=== PATIENT | female | born 1960 | race Caucasian/White ===

== ENCOUNTER 2016-05-18 13:02 | Emergency (ER) | payer OTHER ==
[~2016-05-18] VITALS: Ht 157.5 cm; Wt 48.2 kg
[~2016-05-18 13:02] MED LIST: DIAZ5TAB3 PO; FLUO20CA35 PO; IBUP-1428 PO
[2016-05-18 13:07] VITALS: TEMP 36.3; Ht 157.5 cm; Wt 48.2 kg
[2016-05-18] MEDS ORDERED: GABA-113 PO (14:26)
[2016-05-18] MEDS ORDERED: CLON1TAB3 PO (14:26)
[2016-05-18] MEDS ORDERED: BUSP15TA70 PO (14:26)
[2016-05-18 14:41] LABS: ALT/SGPT 54 U/L (12-78); AST/SGOT 22 U/L (15-37); BLOOD UREA NITROGEN 10 mg/dl (7-18); CALCIUM 9.3 mg/dl (8.5-10.1); CARBON DIOXIDE 28 mmol/L (21-32); CHLORIDE 99 mmol/L (98-107); CREATININE 0.99 mg/dl (0.60-1.20); GLUCOSE 76 mg/dl (70-99); POTASSIUM 4.3 mmol/L (3.5-5.1); SODIUM 135 mmol/L (136-145)
[2016-05-18 14:43] LABS: ALKALINE PHOSPHATASE 92 U/L (45-117)
[2016-05-18 15:03] LABS: URINE APPEARANCE CLEAR (CLEAR); URINE BILIRUBIN NEG (NEG); URINE COLOR YELLOW; URINE EPITHELIAL CELL AUTO 0-5 /lpf (0-5); URINE NITRITE NEG (NEG); URINE SPECIFIC GRAVITY 1.007 (1.000-1.030); UROBILINOGEN NEG (NEG); ZZUR CULT IF INDIC CLEAN CATCH NO
[2016-05-18 15:04] LABS: MANUAL MICROSCOPIC REQUIRED? NO; REVIEW REQ? NO
[2016-05-18 15:15] LABS: BASO % 0.4 %; BASO ABS # 0.02 K/uL (0-0.2); COMPLETE YES; HEMATOCRIT 34.4 % (37-47); IG% 0.2 %; LYMPH % 31.7 %; LYMPH ABS # 1.57 K/uL (1.2-3.4); MEAN CELL VOLUME 89.8 fL (80-100); MEAN CORPUSCULAR HEMOGLOBIN 30.8 pg (25-34); MEAN CORPUSCULAR HGB CONC 34.3 g/dl (32-36); MONO % 10.3 %; NEUT % 55.4 %; PLATELET COUNT 287 K/uL (130-400); RED BLOOD COUNT 3.83 M/uL (4.2-5.4); WHITE BLOOD COUNT 4.95 K/uL (4.8-10.8)
--- NOTE | 2016-05-18 16:02 | EMERGENCY ROOM VISIT NOTE ---
History Report prepared by Ruben: Gris Tavares Under the Supervision of: Dr. Garcia Prajapati D.O. First contact with patient: 14:03 Chief Complaint: OTHER COMPLAINT Stated Complaint: NUMB, PINS AND NEEDLES, PAIN W/D FROM EFFEXOR History of Present Illness The patient is a 56 year old female who presents to the Emergency Room with complaints of intermittent generalized pain that began over one month ago. She currently rates her discomfort as a 7/10 in severity. The patient states that she is currently going through withdrawal from Effexor. She states that she has been off the medication for three months, and has been started on Prozac and Valium for her severe depression and anxiety. The patient states that she was being taken off the Effexor because she almost three times. She states that she had an DC while on Effexor and additionally had a decrease in her blood pressure from 60 to 40 mmHg. The patient states that since she has been experiencing intermittent generalized pain, pins and needles throughout her body and tremors. She states that these symptoms have been preceded by her anxiety or her becoming upset. The patient denies any suicidal or homicidal ideation. She denies any alcohol use. Pt denies headache, fevers , chest pain, shortness of breath, nausea, vomiting, diarrhea, pain with urination, and melena. Source of History: patient Onset: one month ago Position: other (global) Symptom Intensity: 7/10 Quality: other (generalized pain) Timing: intermittent Note: Associated Symptoms: Blurry vision, pins and needles throughout body, tremors Review of Systems See HPI for pertinent positives & negatives. A total of 10 systems reviewed and were otherwise negative. Past Medical & Surgical Medical Problems: (1) Anxiety (2) Chest pain (3) Depression Family History Cancer Diabetes mellitus Gallbladder disease Heart disease Hypertension Kidney disease Kidney stones Social History Smoking Status: Former Smoker Alcohol Use: occasionally Housing Status: lives alone Occupation Status: employed Current/Historical Medications Scheduled Buspirone Hcl (Buspar), 15 MG PO DAILY Diazepam (Valium), 5-10 MG PO DAILY Fluoxetine (Prozac), 60 MG PO DAILY Gabapentin (Neurontin), 60 MG PO BID Scheduled PRN Clonazepam (Klonopin), 1 MG PO PRN PRN for SEVERE ANXIETY Allergies Coded Allergies: Codeine (Verified Allergy, Unknown, "makes me sick", 05/18/16) Physical Exam Vital Signs Date Time Temp Pulse Resp B/P Pulse Ox O2 Delivery O2 Flow Rate FiO2 05/18/16 16:04 53 15 126/96 98 Room Air 05/18/16 15:04 50 16 125/81 99 Room Air 05/18/16 14:17 57 05/18/16 13:07 36.3 60 18 101/66 96 Room Air Physical Exam GENERAL: Sitting up in bed, malnourished, disheveled. EYE EXAM: normal conjunctiva, PERRL and EOM's intact OROPHARYNX: no exudate, no erythema, lips, buccal mucosa, and tongue normal and mucous membranes are moist NECK: supple, no nuchal rigidity, no adenopathy, non-tender LUNGS: Clear to auscultation. Normal chest wall mechanics HEART: no murmurs, S1 normal and S2 normal ABDOMEN: abdomen soft, non-tender, normo-active bowel sounds, no masses, no rebound or guarding. BACK: Back is symmetrical on inspection and there is no deformity, no midline tenderness, no CVA tenderness. SKIN: no rashes and no bruising UPPER EXTREMITIES: upper extremities are grossly normal. LOWER EXTREMITIES: No pitting edema. NEURO EXAM: Normal sensorium, cranial nerves II-XII grossly intact, normal speech, no gross weakness of arms, no gross weakness of legs. No drift. Finger to nose intact. Gross sensation intact. No Clonus. Rapid alternating movements of the upper extremities intact. Medical Decision & Procedures Laboratory Results 05/18/16 14:15 Red Blood Count 3.83, Mean Corpuscular Volume 89.8, Mean Corpuscular Hemoglobin 30.8, Mean Corpuscular Hemoglobin Concent 34.3, Mean Platelet Volume 9.0, Neutrophils (%) (Auto) 55.4, Lymphocytes (%) (Auto) 31.7, Monocytes (%) (Auto) 10.3, Eosinophils (%) (Auto) 2.0, Basophils (%) (Auto) 0.4, Neutrophils # (Auto ) 2.74, Lymphocytes # (Auto) 1.57, Monocytes # (Auto) 0.51, Eosinophils # (Auto ) 0.10, Basophils # (Auto) 0.02 05/18/16 14:15 Test 05/18/16 14:15 05/18/16 14:34 White Blood Count 4.95 K/uL (4.8-10.8) Red Blood Count 3.83 M/uL (4.2-5.4) Hemoglobin 11.8 g/dL (12.0-16.0) Hematocrit 34.4 % (37-47) Mean Corpuscular Volume 89.8 fL (80-100) Mean Corpuscular Hemoglobin 30.8 pg (25-34) Mean Corpuscular Hemoglobin Concent 34.3 g/dl (32-36) Platelet Count 287 K/uL (130-400) Mean Platelet Volume 9.0 fL (7.4-10.4) Neutrophils (%) (Auto) 55.4 % Lymphocytes (%) (Auto) 31.7 % Monocytes (%) (Auto) 10.3 % Eosinophils (%) (Auto) 2.0 % Basophils (%) (Auto) 0.4 % Neutrophils # (Auto) 2.74 K/uL (1.4-6.5) Lymphocytes # (Auto) 1.57 K/uL (1.2-3.4) Monocytes # (Auto) 0.51 K/uL (0.11-0.59) Eosinophils # (Auto) 0.10 K/uL (0-0.5) Basophils # (Auto) 0.02 K/uL (0-0.2) RDW Standard Deviation 43.3 fL (36.4-46.3) RDW Coefficient of Variation 13.2 % (11.5-14.5) Immature Granulocyte % (Auto) 0.2 % Immature Granulocyte # (Auto) 0.01 K/uL (0.00-0.02) Anion Gap 8.0 mmol/L (3-11) Est Creatinine Clear Calc Drug Dose 48.3 ml/min Estimated GFR () 73.8 Estimated GFR (Non- 63.7 BUN/Creatinine Ratio 10.0 (10-20) Calcium Level 9.3 mg/dl (8.5-10.1) Total Bilirubin 0.2 mg/dl (0.2-1) Direct Bilirubin < 0.1 mg/dl (0-0.2) Aspartate Amino Transf (AST/SGOT) 22 U/L (15-37) Alanine Aminotransferase (ALT/SGPT) 54 U/L (12-78) Alkaline Phosphatase 92 U/L (45-117) Total Protein 7.4 gm/dl (6.4-8.2) Albumin 4.3 gm/dl (3.4-5.0) Lipase 186 U/L (73-393) Urine Color YELLOW Urine Appearance CLEAR (CLEAR) Urine pH 7.0 (4.5-7.5) Urine Specific [place] 1.007 (1.000-1.030) Urine Protein NEG (NEG) Urine Glucose (UA) NEG (NEG) Urine Ketones NEG (NEG) Urine Occult Blood NEG (NEG) Urine Nitrite NEG (NEG) Urine Bilirubin NEG (NEG) Urine Urobilinogen NEG (NEG) Urine Leukocyte Esterase NEG (NEG) Urine WBC (Auto) 0 /hpf (0-5) Urine RBC (Auto) 0-4 /hpf (0-4) Urine Hyaline Casts (Auto) 0 /lpf (0-5) Urine Epithelial Cells (Auto) 0-5 /lpf (0-5) Urine Bacteria (Auto) NEG (NEG) Urine Test NEG (NEG) Laboratory results per my review. Medications Administered Medications (Trade) Dose Ordered Sig/Kaur Route Start Time Stop Time Status Last Admin Dose Admin Prednisone (PredniSONE TAB) 60 mg NOW STAT PO 05/18/16 15:36 05/18/16 15:37 DC 05/18/16 16:08 60 MG ED Course ED COURSE: Vital signs were reviewed and showed normal vitals The patients medical record was reviewed The above diagnostic studies were performed and reviewed. ED treatments and interventions as stated above. 1406: The patient was evaluated in room A9B. A complete history and physical examination was performed. 1536: Upon reevaluation, the patient is resting comfortably.I discussed my findings with the patient and she understands and agrees with the treatment plan. She was requesting narcotic pain medications, but I told her we do not prescribe that for withdrawal. She states that last time steroids helped her symptoms Based on the patients age, coexisting illnesses, exam and lab findings the decision to treat as an outpatient was made. The patient remained stable while under my care. The patient appeared well at the time of discharge. Ordered Prednisone 60 mg PO. Medical Decision Differential Diagnosis includes but is not limited to dehydration, stroke, anemia, hypoglycemia, hyponatremia, hypernatremia, urinary tract infection, pneumonia, bronchitis, sepsis, gastroenteritis, additional abdominal pathology, metabolic abnormalities and infections. Patient is a 56-year-old female who presents the ER for diffuse myalgias and paresthesias. Patient has no other complaints at this time. On exam she is completely neurologically intact. She's complained of his symptoms for over a month. She notes that they are paresthesias and return to diffuse body pain. This is consistent with withdrawal from Effexor however it has been going on for protracted period of time. She is on Prozac. Labs were obtained and were unremarkable. I recommended following up with her psychiatrist but she requested narcotics. I declined as she is on multiple medications which can decrease her respiratory drive. Do not believe narcotics the treatment of choice at this time. Recommended continuing Motrin or Tylenol. She is very upset with this. She requested to steroids as she notes this normally makes her feel better. I did give her small dose of prednisone 1 and she was discharged to follow-up with her psychiatrist. She denied any suicidal or homicidal ideations on 2 separate occasions. Discussed with Pt concerning signs and symptoms to watch out for. Pt was instructed to follow up with their PCP and discussed with the patient their option to return to the ED at anytime for persistent or worsening symptoms. The appropriate anticipatory guidance and out- patient management, including indications for return to the emergency department , were explained at length to the patient and understood. Impression Primary Impression: Myalgia Additional Impression: Paresthesias Scribe Attestation The scribe's documentation has been prepared under my direction and personally reviewed by me in its entirety. I confirm that the note above accurately reflects all work, treatment, procedures, and medical decision making performed by me. Departure Information Dispostion Home / Self-Care Referrals Gretta Martines M.D. (PCP) Forms HOME CARE DOCUMENTATION FORM, IMPORTANT VISIT INFORMATION, WORK / SCHOOL INSTRUCTIONS Patient Instructions ED Muscle Aching, My [facility] Additional Instructions Please follow up with your primary care doctor/psychiatrist with in the next 24 hours. Any worsening of your symptoms, please return to the ED immediately. Any weakness in your arms or legs, confusion, fevers grade and 100.4, or any other concerning signs or symptoms please return to the ER. This take Motrin or Tylenol as needed for pain. Problem Qualifiers
[2016-05-18 16:04] VITALS: BP 126/96; PULSE 53; O2SAT 98
== END 2016-05-18 16:13 | disposition home or self-care (01) ==
LOC: C.EDB 13:07 → C.EDA 16:13
DX: M79.1 Myalgia (principal); R20.2 Paresthesia of skin; F41.9 Anxiety disorder, unspecified; F32.9 Major depressive disorder, single episode, unspecified; Z87.891 Personal history of nicotine dependence; Z79.899 Other long term (current) drug therapy; Z88.5 Allergy status to narcotic agent; Z80.9 Family history of malignant neoplasm, unspecified; Z83.3 Family history of diabetes mellitus; Z83.79 Family history of other diseases of the digestive system; Z82.49 Family history of ischemic heart disease and other diseases of the circulatory system; Z84.1 Family history of disorders of kidney and ureter

== ENCOUNTER → 2016-06-05 | Outpatient (CLI) | payer OTHER ==
[~2016-06-05] MED LIST changes: +BUSP15TA70 PO; +CLON1TAB3 PO; +GABA-113 PO; -IBUP-1428 PO
[2016-06-05 13:04] LABS: TOTAL IRON BINDING CAPACITY 311 mcg/dl (250-450)
[2016-06-09 15:28] LABS: ALBUMIN 4.4 G/DL (3.8-4.8); GAMMA GLOBULIN 0.7 G/DL (0.8-1.7); TOTAL PROTEIN 6.7 G/DL (6.2-8.3)
== END | disposition home or self-care (01) ==
LOC: C.LABBFT 09:40
PROVIDERS: ATTEND Internal Medicine
DX: D64.9 Anemia, unspecified (principal); R20.2 Paresthesia of skin; R63.4 Abnormal weight loss; M79.1 Myalgia

== ENCOUNTER 2017-04-05 11:59 | Inpatient (IN) | payer OTHER ==
[~2017-04-05] VITALS: Ht 160 cm; Wt 51.4 kg
--- NOTE | 2017-04-05 12:56 | DIAGNOSTIC IMAGING REPORT ---
CHEST ONE VIEW PORTABLE CLINICAL HISTORY: Mood Disorder DEPRESSION COMPARISON STUDY: 02/12/2016 FINDINGS: The cardiac and mediastinal contours are normal. There is no evidence of focal pulmonary consolidation. There is no evidence of failure. No pleural effusions are visualized.[ IMPRESSION: No active disease in the chest. Electronically signed by: Miguel Simpson M.D. 04/05/2017 12:55 PM Dictated Date/Time: 04/05/2017 12:54 PM
[2017-04-05 12:58] LABS: BASO % 0.6 %; BASO ABS # 0.03 K/uL (0-0.2); COMPLETE YES; EOS % 1.9 %; HEMATOCRIT 36.4 % (37-47); IG% 0.2 %; LYMPH % 27.5 %; LYMPH ABS # 1.46 K/uL (1.2-3.4); MEAN CELL VOLUME 89.2 fL (80-100); MEAN CORPUSCULAR HEMOGLOBIN 29.7 pg (25-34); MEAN CORPUSCULAR HGB CONC 33.2 g/dl (32-36); MEAN PLATELET VOLUME 8.8 fL (7.4-10.4); MONO % 9.1 %; NEUT % 60.7 %; PLATELET COUNT 255 K/uL (130-400); RED BLOOD COUNT 4.08 M/uL (4.2-5.4)
[2017-04-05 12:58] LABS: URINE APPEARANCE CLOUDY (CLEAR); URINE BILIRUBIN NEG (NEG); URINE COLOR YELLOW; URINE NITRITE NEG (NEG); URINE SPECIFIC GRAVITY 1.015 (1.000-1.030); UROBILINOGEN NEG (NEG)
[2017-04-05 13:06] LABS: MANUAL MICROSCOPIC REQUIRED? NO; REVIEW REQ? NO
[2017-04-05] MEDS ORDERED: DIAZ10TA3 PO (13:15)
[2017-04-05] MEDS ORDERED: KPP/250 PO (13:15)
[2017-04-05 13:20] LABS: ALT/SGPT 54 U/L (12-78); AST/SGOT 36 U/L (15-37); BLOOD UREA NITROGEN 14 mg/dl (7-18); BUN/CREATININE RATIO 13.4 (10-20); CARBON DIOXIDE 26 mmol/L (21-32); CHLORIDE 99 mmol/L (98-107); CREATININE 1.03 mg/dl (0.60-1.20); GLUCOSE 71 mg/dl (70-99); POTASSIUM 3.6 mmol/L (3.5-5.1); SODIUM 130 mmol/L (136-145)
[2017-04-05 13:29] VITALS: O2SAT 98
[2017-04-05 13:31] LABS: ALKALINE PHOSPHATASE 66 U/L (45-117)
[2017-04-05 13:33] LABS: BENZODIAZEPINE, URINE POS (NEG); COCAINE,URINE NEG (NEG); PHENCYCLIDINE, URINE NEG (NEG)
[2017-04-05] MEDS ORDERED: NURSING VERBAL MED ORDER ONE ×2 (16:00→17:15)
[2017-04-05] MEDS ORDERED: BISMUTH SUBSALICYLATE PER ML OMNICELL CHARGE PO PRN (16:15)
[2017-04-05] MEDS ORDERED: ACETAMINOPHEN 325 MG TAB PO PRN (16:15)
[2017-04-05] MEDS ORDERED: hydrOXYzine HCL 25 MG TAB PO PRN ×2 (16:15)
[2017-04-05] MEDS ORDERED: MAGNESIUM HYDROXIDE SUSP 30 ML UDC PO PRN (16:15)
[2017-04-05] MEDS ORDERED: SODIUM CHLORIDE 0.65% NA SOLN 45 ML (OCEAN) PRN (16:15)
[2017-04-05] MEDS ORDERED: ALUMINUM/MAGNESIUM SUSP 30 ML UDC PO PRN (16:15)
--- NOTE | 2017-04-05 16:26 | EMERGENCY ROOM VISIT NOTE ---
History Report prepared by Ruben: Hector Fry Under the Supervision of: Dr. Garcia Prajapati D.O. First contact with patient: 12:15 Stated Complaint: DEPRESSION History of Present Illness The patient is a 56 year old female who presents to the Emergency Room with complaints of worsening depression this week. Patient states a family incident caused her to come in and that she is "tired of feeling hated". Patient denies any delusions or hallucinations. Patient has been eating, but denies showering for past few days. Patient has a history of PTSD, depression, and myoclonus. Patient currently takes Valium and Prozac. Patient adds that she takes an additional medication that she can't remember due to her starting to lose her balance. Patient currently has a fractured 2nd toe. Patient is unable to work and is currently on the disability wait list. The patient denies suicidal thoughts. She denies recreational drug or alcohol use. Source of History: patient Onset: this week Quality: other (depression) Timing: worsening Note: Patient denies delusions and hallucinations. Review of Systems See HPI for pertinent positives & negatives. A total of 10 systems reviewed and were otherwise negative. Past Medical & Surgical Medical Problems: (1) Anxiety (2) Chest pain (3) Depression (4) Myoclonus Family History Cancer Diabetes mellitus Gallbladder disease Heart disease Hypertension Kidney disease Kidney stones Social History Smoking Status: Former Smoker Alcohol Use: occasionally Housing Status: lives alone Occupation Status: employed Current/Historical Medications Scheduled Diazepam (Valium), 20 MG PO BID Fluoxetine (Prozac), 60 MG PO DAILY Levetiractam (Keppra), 250 MG PO BID Allergies Coded Allergies: Codeine (Verified Allergy, Unknown, "makes me sick", 04/05/17) Physical Exam Vital Signs Date Time Temp Pulse Resp B/P (MAP) Pulse Ox O2 Delivery O2 Flow Rate FiO2 04/05/17 13:29 65 18 112/65 98 Room Air 04/05/17 12:24 36.6 64 18 121/71 98 Room Air Physical Exam GENERAL: Sitting up in bed, alert, well appearing, well nourished, no distress, non-toxic EYE EXAM: normal conjunctiva. OROPHARYNX: no exudate, no erythema, lips, buccal mucosa, and tongue normal and mucous membranes are moist NECK: supple, no nuchal rigidity, no adenopathy, non-tender LUNGS: Clear to auscultation. Normal chest wall mechanics HEART: no murmurs, S1 normal and S2 normal ABDOMEN: abdomen soft, non-tender, normo-active bowel sounds, no masses, no rebound or guarding. BACK: Back is symmetrical on inspection and there is no deformity, no midline tenderness, no CVA tenderness. SKIN: no rashes and no bruising UPPER EXTREMITIES: upper extremities are grossly normal. LOWER EXTREMITIES: No pitting edema. NEURO EXAM: Normal sensorium, cranial nerves II-XII grossly intact, normal speech, no gross weakness of arms, no gross weakness of legs. PSYCH: Denies homicidal and suicidal ideations. Denies auditory or visual hallucinations. Medical Decision & Procedures ER Provider Diagnostic Interpretation: Radiology results as stated below per my review and the radiologist's interpretation: CHEST ONE VIEW PORTABLE CLINICAL HISTORY: Mood Disorder DEPRESSION COMPARISON STUDY: 02/12/2016 FINDINGS: The cardiac and mediastinal contours are normal. There is no evidence of focal pulmonary consolidation. There is no evidence of failure. No pleural effusions are visualized.[ IMPRESSION: No active disease in the chest. Electronically signed by: Miguel Simpson M.D. 04/05/2017 12:55 PM Laboratory Results 04/05/17 12:43 Red Blood Count 4.08, Mean Corpuscular Volume 89.2, Mean Corpuscular Hemoglobin 29.7, Mean Corpuscular Hemoglobin Concent 33.2, Mean Platelet Volume 8.8, Neutrophils (%) (Auto) 60.7, Lymphocytes (%) (Auto) 27.5, Monocytes (%) (Auto) 9.1, Eosinophils (%) (Auto) 1.9, Basophils (%) (Auto) 0.6, Neutrophils # (Auto) 3.22, Lymphocytes # (Auto) 1.46, Monocytes # (Auto) 0.48, Eosinophils # (Auto) 0.10, Basophils # (Auto) 0.03 04/05/17 12:43 Test 04/05/17 12:13 04/05/17 12:43 Urine Color YELLOW Urine Appearance CLOUDY (CLEAR) Urine pH 5.0 (4.5-7.5) Urine Specific [place] 1.015 (1.000-1.030) Urine Protein NEG (NEG) Urine Glucose (UA) NEG (NEG) Urine Ketones TRACE (NEG) Urine Occult Blood NEG (NEG) Urine Nitrite NEG (NEG) Urine Bilirubin NEG (NEG) Urine Urobilinogen NEG (NEG) Urine Leukocyte Esterase NEG (NEG) Urine WBC (Auto) 1-5 /hpf (0-5) Urine RBC (Auto) 0-4 /hpf (0-4) Urine Hyaline Casts (Auto) 0 /lpf (0-5) Urine Epithelial Cells (Auto) 10-20 /lpf (0-5) Urine Bacteria (Auto) NEG (NEG) Urine Opiates Screen NEG (NEG) Urine Methadone, Qualitative NEG (NEG) Urine Barbiturates NEG (NEG) Urine Phencyclidine (PCP) Level NEG (NEG) Ur Amphetamine/Methamphetamine NEG (NEG) MDMA (Ecstasy) Screen NEG (NEG) Urine Benzodiazepines Screen POS (NEG) Urine Cocaine Metabolite NEG (NEG) Urine Marijuana (THC) NEG (NEG) White Blood Count 5.30 K/uL (4.8-10.8) Red Blood Count 4.08 M/uL (4.2-5.4) Hemoglobin 12.1 g/dL (12.0-16.0) Hematocrit 36.4 % (37-47) Mean Corpuscular Volume 89.2 fL (80-100) Mean Corpuscular Hemoglobin 29.7 pg (25-34) Mean Corpuscular Hemoglobin Concent 33.2 g/dl (32-36) Platelet Count 255 K/uL (130-400) Mean Platelet Volume 8.8 fL (7.4-10.4) Neutrophils (%) (Auto) 60.7 % Lymphocytes (%) (Auto) 27.5 % Monocytes (%) (Auto) 9.1 % Eosinophils (%) (Auto) 1.9 % Basophils (%) (Auto) 0.6 % Neutrophils # (Auto) 3.22 K/uL (1.4-6.5) Lymphocytes # (Auto) 1.46 K/uL (1.2-3.4) Monocytes # (Auto) 0.48 K/uL (0.11-0.59) Eosinophils # (Auto) 0.10 K/uL (0-0.5) Basophils # (Auto) 0.03 K/uL (0-0.2) RDW Standard Deviation 44.8 fL (36.4-46.3) RDW Coefficient of Variation 13.6 % (11.5-14.5) Immature Granulocyte % (Auto) 0.2 % Immature Granulocyte # (Auto) 0.01 K/uL (0.00-0.02) Anion Gap 5.0 mmol/L (3-11) Estimated GFR () 70.4 Estimated GFR (Non- 60.7 BUN/Creatinine Ratio 13.4 (10-20) Calcium Level 9.0 mg/dl (8.5-10.1) Total Bilirubin 0.3 mg/dl (0.2-1) Direct Bilirubin < 0.1 mg/dl (0-0.2) Aspartate Amino Transf (AST/SGOT) 36 U/L (15-37) Alanine Aminotransferase (ALT/SGPT) 54 U/L (12-78) Alkaline Phosphatase 66 U/L (45-117) Total Protein 7.0 gm/dl (6.4-8.2) Albumin 3.9 gm/dl (3.4-5.0) Thyroid Stimulating Hormone (TSH) 2.060 uIu/ml (0.300-4.500) Ethyl Alcohol mg/dL < 3.0 mg/dl (0-3) Laboratory results per my review. ED Course ED COURSE: Vital signs were reviewed and appeared normal. The patients medical record was reviewed The above diagnostic studies were performed and reviewed. ED treatments and interventions as stated above. 1216: The patient was evaluated in room A7. A complete history and physical examination was performed. 1600: Upon reevaluation, the patient is resting comfortably. I discussed my findings with the patient and she understands and agrees with the treatment plan. Based on the patients age, coexisting illnesses, exam and lab findings the decision to treat as an inpatient was made. The patient remained stable while under my care. The patient will be evaluated for further management. Medical Decision Differential diagnoses include major intracranial, cervical, spinal, thoracic, abdominal, pelvic and neurologic injury. Fracture, contusion, sprain, strain, laceration, abrasions included as well. Patient is a 56-year-old female who presents to ER for depression associated with thoughts of wanting to self-harm. CBC on BMP, LFTs, bilirubin and TSH was remarkable for sodium of 130. UA was negative. Benzos positive. Alcohol negative. Patient has no other complaints. On discussion with psychiatry she admits to suicidal thoughts. She was referred to 3 S. She was admitted with depression and suicidal thoughts. Medication Reconcilliation Current Medication List: was personally reviewed by me Blood Pressure Screening Patient's blood pressure: Normal blood pressure Blood pressure disposition: Did not require urgent referral Impression Primary Impression: Suicidal ideation Additional Impressions: Depression Hyponatremia Scribe Attestation The scribe's documentation has been prepared under my direction and personally reviewed by me in its entirety. I confirm that the note above accurately reflects all work, treatment, procedures, and medical decision making performed by me. Departure Information Dispostion [facility] ([address] [place] [address] ) Referrals Gretta Martines M.D. (PCP) Forms HOME CARE DOCUMENTATION FORM, IMPORTANT VISIT INFORMATION Patient Instructions My [facility] Problem Qualifiers Additional Impressions: Depression Depression Type: unspecified Qualified Codes: F32.9 - Major depressive disorder, single episode, unspecified
[2017-04-05 18:05] VITALS: BP 91/60; PULSE 66; TEMP 36.6; Ht 160 cm; Wt 51.4 kg
[2017-04-05] MEDS: LEVETIRACETAM 250 MG TAB PO SCH (21:19)
[2017-04-05] MEDS: DIAZEPAM 5MG TAB PO SCH (21:19)
[2017-04-06 06:57] VITALS: BP_SYST 79; BP_SYST 98; BP_DIAS 50; BP_DIAS 63; PULSE 67; PULSE 76; TEMP 37.1
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
[2017-04-06] MEDS: LEVETIRACETAM 250 MG TAB PO SCH ×2 (09:56→21:07)
[2017-04-06] MEDS: DIAZEPAM 5MG TAB PO SCH ×2 (09:57→21:07)
[2017-04-06] MEDS: FLUOXETINE HCL 20 MG CAP PO SCH (09:57)
[2017-04-07 06:41] VITALS: BP_SYST 101; BP_SYST 89; BP_DIAS 59; PULSE 61; PULSE 67; TEMP 36.5
[2017-04-07] MEDS: LEVETIRACETAM 250 MG TAB PO SCH (08:27)
[2017-04-07] MEDS: FLUOXETINE HCL 20 MG CAP PO SCH (08:27)
[2017-04-07] MEDS: DIAZEPAM 5MG TAB PO SCH (08:28)
[2017-04-07 08:49] LABS: BUN/CREATININE RATIO 10.3 (10-20); CALCIUM 8.7 mg/dl (8.5-10.1); CREATININE 1.09 mg/dl (0.60-1.20); POTASSIUM 4.2 mmol/L (3.5-5.1)
[2017-04-07] MEDS ORDERED: DIAZ10TA3 PO (12:14)
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
[2017-04-08 15:21] LABS: HYDROXYETHYLFLURAZEPAM CONF NEGATIVE NG/ML (CUTOFF=50); HYDROXYMIDAZOLAM NEGATIVE NG/ML (CUTOFF=50); HYDROXYTRIAZOLAM CONF NEGATIVE NG/ML (CUTOFF=50); TEMAZEPAM CONF >2000 NG/ML (CUTOFF=50)
== END 2017-04-07 14:04 | disposition home or self-care (01) | DRG 881 ==
LOC: EDBD 11:59 → C.EDA 12:00 → C.MHU 15:56
PROVIDERS: ADMIT Psychiatry & Neurology Psychiatry; ATTEND Psychiatry & Neurology Psychiatry
DX: F32.9 Major depressive disorder, single episode, unspecified (principal); E87.1 Hypo-osmolality and hyponatremia; F41.9 Anxiety disorder, unspecified; Z76.5 Malingerer [conscious simulation]; Z87.891 Personal history of nicotine dependence; Z79.899 Other long term (current) drug therapy; Z81.8 Family history of other mental and behavioral disorders

== ENCOUNTER 2017-07-03 14:55 | Emergency (ER) | payer OTHER ==
[~2017-07-03] VITALS: Ht 160 cm; Wt 55.1 kg
[~2017-07-03 14:55] MED LIST changes: -BUSP15TA70 PO; -CLON1TAB3 PO; +DIAZ10TA3 PO; -DIAZ5TAB3 PO; -GABA-113 PO; +KPP/250 PO
[2017-07-03] MEDS ORDERED: KETOROLAC TROMETHAMINE 30 MG/ML VIAL IV STA (15:30)
[2017-07-03 15:53] VITALS: O2SAT 100
[2017-07-03 15:59] VITALS: Ht 160 cm; Wt 55.1 kg
--- NOTE | 2017-07-03 16:00 | DIAGNOSTIC IMAGING REPORT ---
CHEST ONE VIEW PORTABLE CLINICAL HISTORY: EVALUATE WEAKNESS dyspnea COMPARISON STUDY: 04/05/2017 FINDINGS: The bones soft tissues and hemidiaphragms are normal. The cardiomediastinal silhouette is normal. The lungs are clear. The pulmonary vasculature is normal. IMPRESSION: Negative chest. The above report was generated using voice recognition software. It may contain grammatical, syntax or spelling errors. Electronically signed by: Sadiq Roldan M.D. 07/03/2017 3:58 PM Dictated Date/Time: 07/03/2017 3:58 PM
[2017-07-03 16:07] LABS: BASO % 0.6 %; BASO ABS # 0.03 K/uL (0-0.2); EOS % 2.1 %; EOS ABS # 0.11 K/uL (0-0.5); HEMATOCRIT 36.6 % (37-47); IG# 0.01 K/uL (0.00-0.02); LYMPH % 33.4 %; LYMPH ABS # 1.71 K/uL (1.2-3.4); MEAN CELL VOLUME 91.3 fL (80-100); MEAN CORPUSCULAR HEMOGLOBIN 29.9 pg (25-34); MEAN CORPUSCULAR HGB CONC 32.8 g/dl (32-36); MEAN PLATELET VOLUME 8.7 fL (7.4-10.4); MONO % 9.6 %; MONO ABS # 0.49 K/uL (0.11-0.59); NEUT % 54.1 %; NEUT ABS # 2.77 K/uL (1.4-6.5); PLATELET COUNT 271 K/uL (130-400); RED CELL DISTRIBUTION WIDTH CV 13.7 % (11.5-14.5); RED CELL DISTRIBUTION WIDTH SD 45.9 fL (36.4-46.3); WHITE BLOOD COUNT 5.12 K/uL (4.8-10.8)
[2017-07-03 16:15] LABS: PTT PATIENT 25.2 SECONDS (21.0-31.0)
[2017-07-03 16:33] LABS: ALT/SGPT 34 U/L (12-78); AST/SGOT 21 U/L (15-37); BLOOD UREA NITROGEN 10 mg/dl (7-18); CARBON DIOXIDE 28 mmol/L (21-32); CREATININE 0.97 mg/dl (0.60-1.20); GLUCOSE 68 mg/dl (70-99); LIPASE 153 U/L (73-393); POTASSIUM 3.7 mmol/L (3.5-5.1); SODIUM 134 mmol/L (136-145)
[2017-07-03 16:41] LABS: ALKALINE PHOSPHATASE 79 U/L (45-117); CKMB 0.8 ng/ml (0.5-3.6); TOTAL PROTEIN 7.5 gm/dl (6.4-8.2)
[2017-07-03] MEDS ORDERED: COEN1CAP17 (16:51)
[2017-07-03] MEDS ORDERED: FLUO40CA8 PO (16:51)
[2017-07-03] MEDS ORDERED: OMEG10007 PO (16:51)
[2017-07-03] MEDS ORDERED: MULT-513 PO (16:51)
[2017-07-03] MEDS ORDERED: VITAMIN D PO (16:51)
[2017-07-03 18:41] VITALS: BP 116/69; PULSE 84; TEMP 36.5; O2SAT 98
--- NOTE | 2017-07-03 19:04 | EMERGENCY ROOM VISIT NOTE ---
History Report prepared by Ruben: Martin Mondragon Under the Supervision of: Dr. Shane Bradley M.D. First contact with patient: 15:18 Chief Complaint: PAIN (GENERALIZED) Stated Complaint: PAIN History of Present Illness The patient is a 57 year old female who presents to the Emergency Room with complaints of persistent generalized pain for two weeks. She notes the pain is originating from her neck and has been radiating to her back, elbows, arms, wrists, and ankles. She currently rates her pain a 9/10 in severity. She notes the pain became an issue two weeks ago, though she has had the pain for a year since she has been taken off of Effexor XR. She states that she was told pain is a withdrawal symptom even after a year of no use. She states that her PCP, Dr. Morris is aware of her pain, though she states that she tried to obtain an appointment and was unsuccessful. She has a history of a fall and had a brain MRI in February 2017 at [facility], which showed an abnormality. She is scheduled to have a second brain MRI in October 2017. She was seen by Dr. Andra Frost of neurology and was prescribed Keppra for her history of Myoclonus. She also reports a history of severe depression. She is expected to see pain management on July 07, 2017. She notes diarrhea. Per , the patient is irritable at times. She states that she has memory issues. Pt denies LOC, headache, fevers, chills, diaphoresis, visual changes, breathing difficulties, nausea, vomiting, melena, hematochezia, urinary symptoms, numbness, weakness, or other complaints. Source of History: patient Onset: two weeks Position: neck Symptom Intensity: 9/10 Associated Symptoms: + back pain, + diarrhea Note: She notes pain in elbows, arms, wrists, and ankles. Notes irritability. Review of Systems See HPI for pertinent positives and negatives. A total of ten systems were reviewed and were otherwise negative. Past Medical & Surgical Medical Problems: (1) Anxiety (2) Chest pain (3) Depression (4) Fractured toe (5) Malingering (6) Myoclonus (7) Myoclonus Family History Cancer Diabetes mellitus Gallbladder disease Heart disease Hypertension Kidney disease Kidney stones Social History Smoking Status: Never Smoker Alcohol Use: occasionally Marital Status: Housing Status: lives with significant other Occupation Status: unemployed Current/Historical Medications Scheduled Coenzyme Q10 (Ubidecarenone) (Co Q 10), 100 MG DAILY Diazepam (Valium), 10 MG PO BID Fish Oil ([place]-3), 2 CAP PO BID Fluoxetine (Prozac), 20 MG PO DAILY Fluoxetine (Prozac), 40 MG PO DAILY Levetiractam (Keppra), 250 MG PO BID Multivitamins/Minerals (Mvi With Minerals), 1 TAB PO DAILY [Vitamin D Susp], 1 DOSE PO DAILY Allergies Coded Allergies: Codeine (Verified Allergy, Unknown, "makes me sick", 04/05/17) Physical Exam Vital Signs Date Time Temp Pulse Resp B/P (MAP) Pulse Ox O2 Delivery O2 Flow Rate FiO2 07/03/17 18:41 36.5 84 16 116/69 98 07/03/17 18:40 84 16 116/69 98 Room Air 07/03/17 17:59 84 16 114/70 98 Room Air 07/03/17 17:00 58 18 115/62 100 Room Air 07/03/17 16:17 63 07/03/17 15:53 100 Room Air 07/03/17 15:00 36.5 80 18 95/65 93 Room Air Physical Exam GENERAL: Awake, alert, anxious-appearing, in mild distress. HENT: Normocephalic, atraumatic. Oropharynx unremarkable. EYES: Normal conjunctiva. Sclera non-icteric. NECK: Supple. No nuchal rigidity. FROM. No masses. RESPIRATORY: Clear to auscultation. No wheezes. No rales. Normal respiratory effort. CARDIAC: Normal rate. Normal rhythm. No murmurs. No rubs. Extremities warm and well perfused. Pulses equal. No JVD. GI: Soft, non-distended. No tenderness to palpation. No rebound or guarding. No masses. RECTAL: Deferred. MUSCULOSKELETAL: Atraumatic. Chest examination reveals no tenderness. The back is symmetrical on inspection without obvious abnormality. There is no CVA tenderness to palpation. No joint edema. LOWER EXTREMITIES: Calves are equal size bilaterally and non-tender. No edema. No discoloration. NEURO: Normal sensorium. No sensory or motor deficits noted. SKIN: No rash or jaundice noted. Medical Decision & Procedures ER Provider Diagnostic Interpretation: Radiology results as stated below per my review and radiologist interpretation: CHEST ONE VIEW PORTABLE CLINICAL HISTORY: EVALUATE WEAKNESS dyspnea COMPARISON STUDY: 04/05/2017 FINDINGS: The bones soft tissues and hemidiaphragms are normal. The cardiomediastinal silhouette is normal. The lungs are clear. The pulmonary vasculature is normal. IMPRESSION: Negative chest. The above report was generated using voice recognition software. It may contain grammatical, syntax or spelling errors. Electronically signed by: Sadiq Roldan M.D. 07/03/2017 3:58 PM Dictated Date/Time: 07/03/2017 3:58 PM Laboratory Results 07/03/17 15:53 Red Blood Count 4.01, Mean Corpuscular Volume 91.3, Mean Corpuscular Hemoglobin 29.9, Mean Corpuscular Hemoglobin Concent 32.8, Mean Platelet Volume 8.7, Neutrophils (%) (Auto) 54.1, Lymphocytes (%) (Auto) 33.4, Monocytes (%) (Auto) 9.6, Eosinophils (%) (Auto) 2.1, Basophils (%) (Auto) 0.6, Neutrophils # (Auto) 2.77, Lymphocytes # (Auto) 1.71, Monocytes # (Auto) 0.49, Eosinophils # (Auto) 0.11, Basophils # (Auto) 0.03 07/03/17 15:53 Test 07/03/17 15:53 07/03/17 16:02 07/03/17 16:44 White Blood Count 5.12 K/uL (4.8-10.8) Red Blood Count 4.01 M/uL (4.2-5.4) Hemoglobin 12.0 g/dL (12.0-16.0) Hematocrit 36.6 % (37-47) Mean Corpuscular Volume 91.3 fL (80-100) Mean Corpuscular Hemoglobin 29.9 pg (25-34) Mean Corpuscular Hemoglobin Concent 32.8 g/dl (32-36) Platelet Count 271 K/uL (130-400) Mean Platelet Volume 8.7 fL (7.4-10.4) Neutrophils (%) (Auto) 54.1 % Lymphocytes (%) (Auto) 33.4 % Monocytes (%) (Auto) 9.6 % Eosinophils (%) (Auto) 2.1 % Basophils (%) (Auto) 0.6 % Neutrophils # (Auto) 2.77 K/uL (1.4-6.5) Lymphocytes # (Auto) 1.71 K/uL (1.2-3.4) Monocytes # (Auto) 0.49 K/uL (0.11-0.59) Eosinophils # (Auto) 0.11 K/uL (0-0.5) Basophils # (Auto) 0.03 K/uL (0-0.2) RDW Standard Deviation 45.9 fL (36.4-46.3) RDW Coefficient of Variation 13.7 % (11.5-14.5) Immature Granulocyte % (Auto) 0.2 % Immature Granulocyte # (Auto) 0.01 K/uL (0.00-0.02) Erythrocyte Sedimentation Rate 4 mm/hr (0-21) Prothrombin Time 10.7 SECONDS (9.0-12.0) Prothromb Time International Ratio 1.0 (0.9-1.1) Activated Partial Thromboplast Time 25.2 SECONDS (21.0-31.0) Partial Thromboplastin Ratio 1.0 Anion Gap 5.0 mmol/L (3-11) Est Creatinine Clear Calc Drug Dose 52.9 ml/min Estimated GFR () 75.1 Estimated GFR (Non- 64.8 BUN/Creatinine Ratio 10.0 (10-20) Calcium Level 9.0 mg/dl (8.5-10.1) Magnesium Level 2.2 mg/dl (1.8-2.4) Total Bilirubin 0.3 mg/dl (0.2-1) Direct Bilirubin < 0.1 mg/dl (0-0.2) Aspartate Amino Transf (AST/SGOT) 21 U/L (15-37) Alanine Aminotransferase (ALT/SGPT) 34 U/L (12-78) Alkaline Phosphatase 79 U/L (45-117) Total Creatine Kinase 125 U/L (26-192) Creatine Kinase MB 0.8 ng/ml (0.5-3.6) Creatine Kinase MB Ratio 0.6 (0-3.0) Troponin I < 0.015 ng/ml (0-0.045) C-Reactive Protein < 0.29 mg/dl (0-0.29) Total Protein 7.5 gm/dl (6.4-8.2) Albumin 4.0 gm/dl (3.4-5.0) Lipase 153 U/L (73-393) Thyroid Stimulating Hormone (TSH) 1.940 uIu/ml (0.300-4.500) Lyme Disease IgG Antibody NEG (NEG) Lyme Disease IgM Antibody NEG (NEG) Urine Color YELLOW Urine Appearance CLEAR (CLEAR) Urine pH 5.0 (4.5-7.5) Urine Specific [place] 1.006 (1.000-1.030) Urine Protein NEG (NEG) Urine Glucose (UA) NEG (NEG) Urine Ketones NEG (NEG) Urine Occult Blood NEG (NEG) Urine Nitrite NEG (NEG) Urine Bilirubin NEG (NEG) Urine Urobilinogen NEG (NEG) Urine Leukocyte Esterase NEG (NEG) Urine Opiates Screen NEG (NEG) Urine Methadone, Qualitative NEG (NEG) Urine Barbiturates NEG (NEG) Urine Phencyclidine (PCP) Level NEG (NEG) Ur Amphetamine/Methamphetamine NEG (NEG) MDMA (Ecstasy) Screen NEG (NEG) Urine Benzodiazepines Screen POS (NEG) Urine Cocaine Metabolite NEG (NEG) Urine Marijuana (THC) NEG (NEG) Bedside Glucose 73 mg/dl (70-90) Laboratory results reviewed by me Medications Administered Medications (Trade) Dose Ordered Sig/Kaur Route Start Time Stop Time Status Last Admin Dose Admin Ketorolac Tromethamine (Toradol Inj) 10 mg NOW STAT IV 07/03/17 15:30 07/03/17 15:33 DC 07/03/17 16:02 10 MG ECG Per My Interpretation Indication: other (generalized pain) Rate (beats per minute): 64 Rhythm: normal sinus Findings: no acute ischemic change, no ectopy, other (Low voltage QRS. Normal intervals. ) ED Course 1525: The patient was evaluated in room C5. A complete history and physical exam was performed. 1530: Ordered Toradol 10 mg IV 170: I reassessed the patient at this time. She is more relaxed and feeling a little bit better. 175: I reassessed the patient at this time. She is feeling better and resting comfortably. We discussed the use of OTC, because she does not want to take anything strong. She does not want Lyrica or Neurontin. I discussed the results and treatment plan with the patient. I answered all pertaining questions that she had. She expressed understanding and verbalized agreement. The patient will be discharged home. Medical Decision Triage Nursing notes reviewed. The patient's presentation and history were concerning for diffuse, migratory myalgias. Etiologies such as metabolic, infection, hypo/hyperglycemia, electrolyte abnormalities, cardiac sources, intracerebral event, toxicologic, neurologic, fibromyalgia, Lyme disease, mood disorder, as well as others were entertained. The patient was evaluated. Her physical examination was benign as above. She was given a dose of IV Toradol and felt much better. Her blood work, ECG, chest x-ray, cardiac markers, and urinalysis were unremarkable. Lyme screen was negative. Her diagnostic testing did not reveal any abnormal results. The patient has had symptoms that she notes for over a year but they have worsened over the last 2 weeks. I did review her recent admission to the hospital due to mental health issues. The patient has a pain management appointment coming up this week. I did discuss options such as Lyrica or Neurontin however the patient declined. She was instructed to take [id number] ibuprofen or Tylenol sparingly. She will use warm compresses. If the patient has any worsening problems she can come back to the ER for reevaluation. The exact etiology of her myalgias is not obvious at this moment but could likely be multifactorial. She was somewhat anxious and I am sure that this is adding to the overall effects. I had a long conversation with her and her significant other. Patient felt comfortable with the plan. I gave my usual and customary discussion regarding this issue. By the evaluation outlined above other emergent etiologies such as those listed in the differential, as well as others, were deemed relatively unlikely. The patient was educated about the findings as listed above. All questions were answered and the patient was pleased with the treatment. Return instructions were outlined and the patient was discharged in stable condition. The patient was referred to pain management, neurology, and her PCP for follow- up for a recheck of the current condition. Medication Reconcilliation Current Medication List: was personally reviewed by me Blood Pressure Screening Patient's blood pressure: Normal blood pressure Blood pressure disposition: Referred to PCP Impression Primary Impression: Myalgia Scribe Attestation The scribe's documentation has been prepared under my direction and personally reviewed by me in its entirety. I confirm that the note above accurately reflects all work, treatment, procedures, and medical decision making performed by me. Departure Information Dispostion Home / Self-Care Referrals Fernanda Morris D.O. (PCP) Rene Adame D.O., Kathleen A., M.D. Forms HOME CARE DOCUMENTATION FORM, IMPORTANT VISIT INFORMATION, WORK / SCHOOL INSTRUCTIONS Patient Instructions My [facility] Additional Instructions Ibuprofen(Motrin, Advil) may be used for fever or pain. Use 600mg every 8 hours only as needed. Take with food. Avoid using more than 1800mg in a 24 hour period. Do not use 2400mg per day for more than three consecutive days without physician direction. Prolonged inappropriate use can lead to stomach upset or ulcers. And/or Tylenol: Take 1000 mg every 6 hours as needed for pain. Do not take more than 3000 mg in a 24 hour period. Continue your current appointments this week. Rest and drink plenty of fluids. Warm compresses for 20 minutes at a time four times daily for 2-3 days. Return to the ER for headache, passing out, difficulty breathing, fevers, Chest pain, numbness, tingling, worsening of your condition, or as needed.
== END 2017-07-03 18:42 | disposition home or self-care (01) ==
LOC: C.EDB 14:56 → C.EDC 18:42
DX: M79.1 Myalgia (principal); G25.3 Myoclonus; F41.9 Anxiety disorder, unspecified; F32.9 Major depressive disorder, single episode, unspecified; Z76.5 Malingerer [conscious simulation]; Z82.49 Family history of ischemic heart disease and other diseases of the circulatory system; Z83.79 Family history of other diseases of the digestive system; Z84.1 Family history of disorders of kidney and ureter; Z83.3 Family history of diabetes mellitus; Z88.6 Allergy status to analgesic agent

== ENCOUNTER 2017-07-07 10:43 | Emergency (ER) | payer OTHER ==
[~2017-07-07] VITALS: Ht 161.3 cm; Wt 52.5 kg
[~2017-07-07 10:43] MED LIST changes: +COEN1CAP17; +FLUO40CA8 PO; +MULT-513 PO; +OMEG10007 PO; +VITAMIN D PO
[2017-07-07 10:53] VITALS: TEMP 36.7; Ht 161.3 cm; Wt 52.5 kg
[2017-07-07] MEDS ORDERED: KETOROLAC TROMETHAMINE 60 MG/2 ML VIAL IM STA (11:51)
[2017-07-07] MEDS ORDERED: LIDODERM (LIDOCAINE) PATCH 5% TD STA (11:51)
--- NOTE | 2017-07-07 12:46 | EMERGENCY ROOM VISIT NOTE ---
History First contact with patient: 11:24 Chief Complaint: NECK PAIN Stated Complaint: SEVERE NECK PAIN History of Present Illness The patient is a 57 year old female who presents to the Emergency Room with complaints of neck and diffuse body pains which have been ongoing for several weeks. Acute/current history is difficult with this patient, as she spends much time complaining about previous providers and events. The patient reports 1.5 year long history of severe pains since discontinuing Effexor XR. She believes this to be a withdrawal symptom, as she states her psychiatrist told her it was. The patient states she has been being managed by her primary care provider and orthopedic surgeon. She was told that she was to see a apprentice painter hand, and states her primary care provider had supposedly scheduled her an appointment for today. The patient states when she showed up to the office for the appointment, she was told that the appointment had been canceled, but was unaware of this cancellation. She states she saw her PCP on Wednesday of this week, which is when she was given a prescription for Savella, but is unable to pick remover this prescription due to the cost. She states she is having very severe neck pain, which is worsening her myoclonus spasms. She has taken no medications [id number] for her severe pain. She states the pain is radiating from her neck throughout her entire body, down her back, and into her toes. She states there are some paresthesias, describes it similar to a sciatica pain. She has been using a heating pad on occasion, but has not used any muscle rubs or Tylenol. She states her PCP did give her a prescription for ibuprofen. There is no injury preceding the pain, and the patient has had no imaging performed. She was here on Wednesday with the same complaint, and was given Toradol, which she states helps with her symptoms. She did have lab work completed at that point which did not reveal any acute findings for her pain. She did recently restart taking 100 mg gabapentin as needed, and states this does help with her symptoms somewhat. Review of Systems A complete 10 point review of systems was reviewed with the patient with pertinent positives and negatives as per history of present illness. All else were negative. Past Medical/Surgical History Medical Problems: (1) Anxiety (2) Chest pain (3) Depression (4) Fractured toe (5) Malingering (6) Myoclonus (7) Myoclonus Family History Cancer Diabetes mellitus Gallbladder disease Heart disease Hypertension Kidney disease Kidney stones Social History Smoking Status: Former Smoker Alcohol Use: occasionally Marital Status: Housing Status: lives with significant other Occupation Status: unemployed Current/Historical Medications Scheduled Coenzyme Q10 (Ubidecarenone) (Co Q 10), 100 MG DAILY Diazepam (Valium), 10 MG PO BID Fish Oil ([place]-3), 2 CAP PO BID Fluoxetine (Prozac), 20 MG PO DAILY Fluoxetine (Prozac), 40 MG PO DAILY Levetiractam (Keppra), 250 MG PO BID Multivitamins/Minerals (Mvi With Minerals), 1 TAB PO DAILY [Vitamin D Susp], 1 DOSE PO DAILY Physical Exam Vital Signs Date Time Temp Pulse Resp B/P (MAP) Pulse Ox O2 Delivery O2 Flow Rate FiO2 07/07/17 12:53 56 16 117/70 100 07/07/17 10:53 36.7 69 16 102/69 96 Room Air Physical Exam VITALS: Vitals are noted on the nurse's note and reviewed by myself. Vital signs stable. The patient is experiencing muscle spasms in her lower extremities. GENERAL: This is a 57-year-old white female, in no acute distress, nondiaphoretic, well-developed well-nourished. SKIN: The skin was without rashes, erythema, edema, or bruising. There is no tenting of the skin. Capillary reflex less than 2 seconds. HEAD: Normocephalic atraumatic. EARS: External auditory canals clear, tympanic membranes pearly sanchez without erythema or effusion bilaterally. EYES: Pupils equal round and reactive to light and accommodation. Conjunctivae without injection, sclerae without icterus. Extraocular movements intact. NOSE: Patent, turbinates without inflammation or discharge. No sinus tenderness. MOUTH: Mucous membranes moist. Tonsils are not enlarged. Pharynx without erythema or exudate. Uvula midline. Airway patent. Tongue does not deviate. NECK: Supple without nuchal rigidity. No lymphadenopathy. No thyromegaly. Cervical spine is nontender. No JVD. HEART: Regular rate and rhythm without murmurs gallops or rubs. LUNGS: Clear to auscultation bilaterally without wheezes, rales or rhonchi. No dullness to percussion. No retractions or accessory muscle use. ABDOMEN: Positive bowel sounds x 4. Normal tympanic percussion. Soft, nontender, without masses or organomegaly. Sims sign negative. No guarding or rebound tenderness. MUSCULOSKELETAL: No muscle atrophy, erythema, or edema noted. Full range of motion in all extremities. The patient is slow to move around with position changes. She does report severe tenderness to palpation on examination and palpation of all extremities, but with distraction, her symptoms seem to improve. Strength 5/5 throughout. NEURO: Patient was alert and oriented to person place and time. Normal sensation to light and sharp touch. Deep tendon reflexes 2+ throughout. No focal neurological deficits. Medical Decision & Procedures Medications Administered Medications (Trade) Dose Ordered Sig/Kaur Route Start Time Stop Time Status Last Admin Dose Admin Ketorolac Tromethamine (Toradol Inj) 30 mg NOW STAT IM 07/07/17 11:51 07/07/17 11:58 DC 07/07/17 12:10 30 MG Lidocaine (Lidoderm Patch 5%) 1 patch NOW STAT TD 07/07/17 11:51 07/07/17 11:58 DC 07/07/17 12:11 1 PATCH ED Course The patient was seen and evaluated as above. Toradol and Lidoderm patches ordered. X-ray ordered, but the patient declines. The patient did request a new provider and was seen by Dr. Montoya. Please see his dictation. She reports feeling better with Toradol and expresses desire to go home. Discharge instructions reviewed. The patient was discharged home in good condition. Medical Decision This is a 57-year-old female patient presents to the emergency department today complaining of chronic, ongoing neck and body aches which have been present since being on Effexor XR 1-1/2 years ago. She declines any way that the pain could be from any other etiology. I did review previous workup performed by Dr. Bradley over the weekend. I did offer x-rays and repeat lab work with the patient, but discussed with her that her chronic pain will not be treated with narcotics from the emergency department. The patient's pain did improve with Toradol. She refused any imaging. I spoke with the ED pharmacist, Oneyda, who states Effexor XR does not normally cause myalgias or arthralgias as a withdrawal symptom, Please see Dr. Josefa's dictation regarding ongoing medical decision-making, as the patient refused to see me after initial evaluation. Etiologies such as infection, medication reaction, lyme, rheumatologic etiology , arthritis, osteoporosis, soft tissue injury, fracture, dislocation, neurovascular compromise, compartment syndrome, malignancy, as well as others were entertained. Medication Reconcilliation Current Medication List: was personally reviewed by me Blood Pressure Screening Patient's blood pressure: Normal blood pressure Impression Primary Impression: Chronic pain Departure Information Dispostion Home / Self-Care Condition GOOD Referrals Fernanda Morris D.O. (PCP) Patient Instructions ED Chronic Pain Management, My [facility] Additional Instructions You were seen and evaluated in the emergency department today for chronic neck pain. You did refuse x-rays. Your symptoms did improve with medication given to you here in the emergency department. Please remove the lidoderm patch by the 12 hour lily, at approximately 12:30 tonight. Do not leave the patch on overnight, as it may cause skin breakdown. As discussed, your primary care provider and/or pain management providers will have to treat your chronic pain long-term. The emergency department will not treat your chronic pain with narcotic medication. Please return to the emergency department for any significantly worsening symptoms. Follow-up with your primary care provider in 1-2 days for reevaluation of your symptoms and ongoing management of your chronic pain. Problem Qualifiers Primary Impression: Chronic pain Chronic pain type: chronic pain syndrome Qualified Codes: G89.4 - Chronic pain syndrome
[2017-07-07 12:53] VITALS: BP 117/70; PULSE 56; O2SAT 100
--- NOTE | 2017-07-07 14:45 | EMERGENCY ROOM VISIT NOTE ---
ED Visit Note First contact with patient: 11:24 I have personally evaluated and examined this patient. I agree with assessment and plan of Leatha Wolff PA-C. 57 yr old female arrives for evaluation of neck pain ongoing for 2 years though worse over the last 3 weeks. She was initially seen by New [facility] but after evaluation and initial orders patient requested another provider evaluate her. Patient is somewhat difficult given she is very quick to criticize most providers and will not allow me to ask her questions rather preferring to give long description of the last 7 yrs of her life. She makes clear her neck pain is from Effexor. She is adamant it can be nothing else. She refuses further evaluation and labs and imaging at this time. States the IM Toradol helped her pain and she plans on leaving. She is aware I am willing to work with her to help determine if any emergency is going one but she requests to go home. She denies need for case management to help. She is adamant she does not need mental health evaluation and states she is not suicidal nor homicidal. She states she is fine at home. She has valium already at home. She understands we do not want to start narcotics. She is breathing comfortably and in no distress. She is going to make all of her appointments and declines help in doing this. I have made it clear to her she can return at any time if worsening or other concerns.
== END 2017-07-07 12:54 | disposition home or self-care (01) ==
LOC: C.EDB 10:44 → C.EDC 12:54
DX: G89.4 Chronic pain syndrome (principal); Z87.891 Personal history of nicotine dependence; Z79.899 Other long term (current) drug therapy; F41.9 Anxiety disorder, unspecified; F32.9 Major depressive disorder, single episode, unspecified

== ENCOUNTER 2017-11-27 16:03 | Emergency (ER) | payer OTHER ==
[~2017-11-27] VITALS: Ht 165.1 cm; Wt 57.4 kg
[~2017-11-27 16:03] MED LIST changes: -COEN1CAP17; -MULT-513 PO; -OMEG10007 PO
[2017-11-27] MEDS ORDERED: KETOROLAC TROMETHAMINE 30 MG/ML VIAL IV STA (16:15)
[2017-11-27 16:23] VITALS: Ht 165.1 cm; Wt 57.4 kg
[2017-11-27 16:28] VITALS: O2SAT 96
[2017-11-27] MEDS ORDERED: COEN1CAP17 PO (16:51)
[2017-11-27] MEDS ORDERED: OMEG10007 PO (16:51)
[2017-11-27] MEDS ORDERED: MULT-513 PO (16:51)
[2017-11-27] MEDS ORDERED: DONE10TA12 PO (17:06)
[2017-11-27] MEDS ORDERED: LEVE500T14 PO (17:06)
[2017-11-27] MEDS ORDERED: SODI650T8 PO (17:06)
[2017-11-27] MEDS ORDERED: MIDO5TAB PO (17:06)
[2017-11-27] MEDS ORDERED: DIAZ10TA PO (17:07)
--- NOTE | 2017-11-27 17:30 | DIAGNOSTIC IMAGING REPORT ---
TWO VIEW CHEST CLINICAL HISTORY: Atypical chest pain. FINDINGS: AP and lateral chest radiographs are compared to study dated 06/23/2017. The cardiomediastinal silhouette is unremarkable. There is mild chronic elevation of the right hemidiaphragm with associated atelectasis. The lungs and pleural spaces are otherwise clear. There is no pneumothorax. The skeletal structures are osteopenic. The bony thorax appears intact. IMPRESSION: No active disease in the chest. Electronically signed by: Zackary Moscoso M.D. 11/27/2017 5:29 PM Dictated Date/Time: 11/27/2017 5:27 PM
[2017-11-27 17:38] LABS: BASO % 0.5 %; BASO ABS # 0.03 K/uL (0-0.2); EOS % 2.2 %; EOS ABS # 0.12 K/uL (0-0.5); HEMATOCRIT 34.6 % (37-47); IG# 0.01 K/uL (0.00-0.02); LYMPH % 33.3 %; LYMPH ABS # 1.83 K/uL (1.2-3.4); MEAN CELL VOLUME 90.3 fL (80-100); MEAN CORPUSCULAR HEMOGLOBIN 31.3 pg (25-34); MEAN CORPUSCULAR HGB CONC 34.7 g/dl (32-36); MEAN PLATELET VOLUME 8.7 fL (7.4-10.4); MONO % 10.6 %; MONO ABS # 0.58 K/uL (0.11-0.59); NEUT % 53.2 %; NEUT ABS # 2.92 K/uL (1.4-6.5); PLATELET COUNT 241 K/uL (130-400); RED CELL DISTRIBUTION WIDTH SD 43.1 fL (36.4-46.3); WHITE BLOOD COUNT 5.49 K/uL (4.8-10.8)
[2017-11-27 17:50] LABS: PTT PATIENT 27.5 SECONDS (21.0-31.0)
[2017-11-27 18:01] LABS: BLOOD UREA NITROGEN 13 mg/dl (7-18); CALCIUM 9.2 mg/dl (8.5-10.1); CARBON DIOXIDE 31 mmol/L (21-32); CREATININE 1.05 mg/dl (0.60-1.20); GLUCOSE 87 mg/dl (70-99); POTASSIUM 3.7 mmol/L (3.5-5.1); SODIUM 131 mmol/L (136-145)
[2017-11-27 18:51] VITALS: BP 98/64; PULSE 59; TEMP 36.7; O2SAT 96
--- NOTE | 2017-11-27 19:01 | EMERGENCY ROOM VISIT NOTE ---
History First contact with patient: 16:05 Chief Complaint: OTHER COMPLAINT Stated Complaint: CHEST PAIN, SOB History of Present Illness The patient is a 57 year old female who presents to the Emergency Room with complaints of chest pain which started intermittently for the past 1 week. She describes it as a "hurt" in the middle of her chest without radiation. It is associated with shortness of breath. She cannot identify any alleviating factors. It is worse with breathing. She states that she normally wears support hose but has not recently and so her legs might be swollen. She does state that she is fairly sedentary because she has issues with her blood pressure. She sees a taper machine for it. She has no personal history of PE, DVT or coronary artery disease. She believes her chest pain may be secondary to her use of Effexor. She has not used this medication for 2 years but states that it is still in her system causing her problems and that "everything "is because of the Effexor. She is upset because her doctors are not addressing this and she cannot work and she is waiting to be placed on disability. She states she has a history of depression but she has not suicidal. She denies any fever or vomiting. Source of History: patient Onset: 1 week Position: chest Quality: other ("hurt") Timing: intermittent Modifying Factors (Worsening): breathing Associated Symptoms: + SOB, No fevers, No vomiting Review of Systems See HPI for pertinent positives & negatives. A total of 10 systems reviewed and were otherwise negative. Past Medical/Surgical History Medical Problems: (1) Anxiety (2) Chest pain (3) Depression (4) Fractured toe (5) Malingering (6) Myoclonus (7) Myoclonus Family History Cancer Diabetes mellitus Gallbladder disease Heart disease Hypertension Kidney disease Kidney stones Social History Smoking Status: Former Smoker Alcohol Use: occasionally Marital Status: Housing Status: lives with significant other Occupation Status: unemployed Current/Historical Medications Scheduled Coenzyme Q10 (Ubidecarenone) (Co Q 10), 100 MG PO DAILY Diazepam (Valium), 10 MG PO DAILY Donepezil Hydrochloride (Aricept), 10 MG PO HS Fish Oil ([place]-3), 2 CAP PO BID Fluoxetine (Prozac), 20 MG PO DAILY Levetiracetam (Keppra Xr), 500 MG PO HS Midodrine Hcl (Midodrine Hcl), 7.5 MG PO DAILY Multivitamins/Minerals (Mvi With Minerals), 1 TAB PO DAILY Sodium Bicarbonate (Sodium Bicarbonate), 650 MG PO BID Physical Exam Vital Signs Date Time Temp Pulse Resp B/P (MAP) Pulse Ox O2 Delivery O2 Flow Rate FiO2 11/27/17 18:51 36.7 59 14 98/64 96 11/27/17 18:46 98/64 11/27/17 18:31 102/61 11/27/17 18:16 109/63 11/27/17 18:01 93/57 11/27/17 17:46 98/59 11/27/17 17:39 59 14 94/62 96 Room Air 11/27/17 17:39 16 11/27/17 16:55 62 11/27/17 16:48 61 14 11/27/17 16:48 61 16 11/27/17 16:28 96 Room Air 11/27/17 16:27 94/62 11/27/17 16:27 62 14 94/62 96 Room Air 11/27/17 16:23 36.7 62 14 94/62 96 Room Air Physical Exam Constitutional: Vital signs reviewed. Eyes: Pupils are equal round reactive to light. Conjunctiva are noninjected. ENT: Pharynx is clear without erythema or exudate. Mucous membranes are moist. Neck supple without meningeal signs. Respiratory: Clear to auscultation bilaterally. Breath sounds are equal bilaterally. Cardiovascular: Regular rate and rhythm. No rubs or gallops. GI: Soft, nondistended and nontender. Bowel sounds are present. Musculoskeletal: No peripheral edema. No lower extremity tenderness. Reproducible chest wall tenderness anteriorly. Integumentary: No cyanosis. Neurological: The patient is awake and alert. No focal deficits. Psychiatric: Anxious and sometimes tearful. Medical Decision & Procedures ER Provider Diagnostic Interpretation: Patient: MARGIE SHELTON Address1: [address] [facility] Rec: [id number] Address2: Acct ID: [id number] [facility] [place] Zip: [place] [address] Date: 1960 Sex: F Room/Bed: Ref Phy: Fernanda Morris D.O. SC: TOÑO Att Phy: Report #: [id number] Suzy Phy: Fernanda Morris D.O. Test: CXR Admit Phy: Design Engineer Products: BERTO Interpreting Phy: Zackary Moscoso M.D. Diagnosis: CHEST PAIN, SOB Ordering Phy: Hector Aleman MD Service Date: 11/27/17 Admit Date: 11/27/17 MNE: [id number] CONF: DICTATED BY: Zackary Moscoso M.D.]] CC: Hector Aleman M.D. Kopinski, Laura, D.O. Endcc: [~ rep ct add3]] TWO VIEW CHEST CLINICAL HISTORY: Atypical chest pain. FINDINGS: AP and lateral chest radiographs are compared to study dated 06/23/2017. The cardiomediastinal silhouette is unremarkable. There is mild chronic elevation of the right hemidiaphragm with associated atelectasis. The lungs and pleural spaces are otherwise clear. There is no pneumothorax. The skeletal structures are osteopenic. The bony thorax appears intact. IMPRESSION: No active disease in the chest. Electronically signed by: Zackary Moscoso M.D. 11/27/2017 5:29 PM Dictated Date/Time: 11/27/2017 5:27 PM Laboratory Results 11/27/17 17:30 Red Blood Count 3.83, Mean Corpuscular Volume 90.3, Mean Corpuscular Hemoglobin 31.3, Mean Corpuscular Hemoglobin Concent 34.7, Mean Platelet Volume 8.7, Neutrophils (%) (Auto) 53.2, Lymphocytes (%) (Auto) 33.3, Monocytes (%) (Auto) 10.6, Eosinophils (%) (Auto) 2.2, Basophils (%) (Auto) 0.5, Neutrophils # (Auto ) 2.92, Lymphocytes # (Auto) 1.83, Monocytes # (Auto) 0.58, Eosinophils # (Auto ) 0.12, Basophils # (Auto) 0.03 11/27/17 17:30 Test 11/27/17 17:30 White Blood Count 5.49 K/uL (4.8-10.8) Red Blood Count 3.83 M/uL (4.2-5.4) Hemoglobin 12.0 g/dL (12.0-16.0) Hematocrit 34.6 % (37-47) Mean Corpuscular Volume 90.3 fL (80-100) Mean Corpuscular Hemoglobin 31.3 pg (25-34) Mean Corpuscular Hemoglobin Concent 34.7 g/dl (32-36) Platelet Count 241 K/uL (130-400) Mean Platelet Volume 8.7 fL (7.4-10.4) Neutrophils (%) (Auto) 53.2 % Lymphocytes (%) (Auto) 33.3 % Monocytes (%) (Auto) 10.6 % Eosinophils (%) (Auto) 2.2 % Basophils (%) (Auto) 0.5 % Neutrophils # (Auto) 2.92 K/uL (1.4-6.5) Lymphocytes # (Auto) 1.83 K/uL (1.2-3.4) Monocytes # (Auto) 0.58 K/uL (0.11-0.59) Eosinophils # (Auto) 0.12 K/uL (0-0.5) Basophils # (Auto) 0.03 K/uL (0-0.2) RDW Standard Deviation 43.1 fL (36.4-46.3) RDW Coefficient of Variation 13.0 % (11.5-14.5) Immature Granulocyte % (Auto) 0.2 % Immature Granulocyte # (Auto) 0.01 K/uL (0.00-0.02) Prothrombin Time 10.5 SECONDS (9.0-12.0) Prothromb Time International Ratio 1.0 (0.9-1.1) Activated Partial Thromboplast Time 27.5 SECONDS (21.0-31.0) Partial Thromboplastin Ratio 1.1 D-Dimer 310 ug/L FEU (0-500) Anion Gap 5.0 mmol/L (3-11) Est Creatinine Clear Calc Drug Dose 53.2 ml/min Estimated GFR () 68.3 Estimated GFR (Non- 58.9 BUN/Creatinine Ratio 12.8 (10-20) Calcium Level 9.2 mg/dl (8.5-10.1) Troponin I < 0.015 ng/ml (0-0.045) Medications Administered Medications (Trade) Dose Ordered Sig/Kaur Route Start Time Stop Time Status Last Admin Dose Admin Ketorolac Tromethamine (Toradol Inj) 10 mg NOW STAT IV 8/11/18 16:15 11/27/17 16:17 DC 11/27/17 17:34 10 MG ECG Per My Interpretation Indication: chest pain Rate (beats per minute): 61 Rhythm: normal sinus Findings: other (Low voltage QRS, no ST elevations, no PVCs) Medical Decision This is a 57-year-old female presents with chest pain. Differential diagnosis includes costochondritis, pleurisy, chest wall pain, pulmonary embolism, pneumothorax. I did perform a limited focused review of portions of the patient 's old chart on the electronic medical record. The patient has had no recent pertinent visits to this hospital. She was seen here in June for neck pain. I did evaluate the patient as noted above. Patient is presenting with a week of chest pain which is intermittent and associated with shortness of breath. On examination she is tender to palpation to her anterior chest wall. IV access was established. 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 She is slightly hypotensive but she states she is normally hypotensive and sees cardiology for this. I did treat her with Toradol IV. I did order and personally review the patient's 12-lead EKG and chest x-ray as described above. Her twelve-lead EKG does not show any acute ischemic changes. Her chest x-ray is unremarkable. I did order and review the patient's blood work as noted in the electronic medical record. D-dimer and troponin are negative. I did reassess the patient and discuss the test results with her. She states she feels better after receiving the Toradol. At this time her symptoms seem likely to be musculoskeletal given its reproducibility as well as the response to Toradol. I did, however, recommend she follow-up closely with her doctor and return for worse symptoms. She was discharged in good condition. Medication Reconcilliation Current Medication List: was personally reviewed by me Blood Pressure Screening Patient's blood pressure: Low blood pressure Blood pressure disposition: Referred to PCP Impression Primary Impression: Acute chest pain Departure Information Referrals Fernanda Morris D.O. (PCP) Patient Instructions My [facility]
== END 2017-11-27 18:52 | disposition home or self-care (01) ==
LOC: EDBD 16:03 → C.EDB 16:04
DX: R07.9 Chest pain, unspecified (principal); R06.02 Shortness of breath; F41.9 Anxiety disorder, unspecified; F32.9 Major depressive disorder, single episode, unspecified; I95.9 Hypotension, unspecified; Z87.891 Personal history of nicotine dependence; Z79.899 Other long term (current) drug therapy

== ENCOUNTER 2017-12-06 12:58 | Emergency (ER) | payer OTHER ==
[~2017-12-06 12:58] MED LIST changes: +COEN1CAP17 PO; +DIAZ10TA PO; -DIAZ10TA3 PO; +DONE10TA12 PO; -FLUO40CA8 PO; -KPP/250 PO; +LEVE500T14 PO; +MIDO5TAB PO; +MULT-513 PO; +OMEG10007 PO; +SODI650T8 PO; -VITAMIN D PO
[2017-12-06] MEDS ORDERED: NALOXONE HCL 0.4 MG/1 ML VIAL/CARP IV STA ×2 (13:13→14:21)
[2017-12-06] MEDS ORDERED: NALOXONE HCL 0.4 MG/1 ML VIAL/CARP ONE (13:13)
[2017-12-06] MEDS ORDERED: OPTIRAY 320 IV PRN (13:30)
[2017-12-06 13:40] LABS: BASO % 0.6 %; BASO ABS # 0.03 K/uL (0-0.2); EOS % 2.8 %; EOS ABS # 0.15 K/uL (0-0.5); HEMATOCRIT 35.2 % (37-47); HEMOGLOBIN 12.3 g/dL (12.0-16.0); IG# 0.01 K/uL (0.00-0.02); LYMPH % 30.9 %; LYMPH ABS # 1.63 K/uL (1.2-3.4); MEAN CELL VOLUME 89.1 fL (80-100); MEAN CORPUSCULAR HEMOGLOBIN 31.1 pg (25-34); MEAN CORPUSCULAR HGB CONC 34.9 g/dl (32-36); MEAN PLATELET VOLUME 8.6 fL (7.4-10.4); MONO % 13.6 %; MONO ABS # 0.72 K/uL (0.11-0.59); NEUT % 51.9 %; NEUT ABS # 2.74 K/uL (1.4-6.5); PLATELET COUNT 219 K/uL (130-400); RED CELL DISTRIBUTION WIDTH CV 12.9 % (11.5-14.5); RED CELL DISTRIBUTION WIDTH SD 42.2 fL (36.4-46.3); WHITE BLOOD COUNT 5.28 K/uL (4.8-10.8)
--- NOTE | 2017-12-06 13:43 | DIAGNOSTIC IMAGING REPORT ---
CHEST ONE VIEW PORTABLE HISTORY: 57 years-old Female od acute shortness of breath COMPARISON: Chest radiograph 11/27/2017 TECHNIQUE: Portable AP view of the chest FINDINGS: Mild right hemidiaphragmatic elevation. The cardiomediastinal and hilar silhouettes are within normal limits. There is no pneumothorax, pleural effusion, focal airspace consolidation or overt pulmonary edema. The bones of the chest appear grossly intact. IMPRESSION: No acute process. The above report was generated using voice recognition software. It may contain grammatical, syntax or spelling errors. Electronically signed by: Edgar Lisa M.D. 12/06/2017 1:41 PM Dictated Date/Time: 12/06/2017 1:39 PM
[2017-12-06 13:48] VITALS: TEMP 36.4
[2017-12-06 13:52] LABS: ISTAT CREATININE 1.1 mg/dl (0.6-1.3); ISTAT IONIZED CALCIUM 1.11 mmol/l (1.12-1.32); ISTAT POTASSIUM 4.8 mEq/L (3.3-5.0)
[2017-12-06 14:03] LABS: ALBUMIN 3.5 gm/dl (3.4-5.0); ALKALINE PHOSPHATASE 76 U/L (45-117); ALT/SGPT 20 U/L (12-78); AST/SGOT 15 U/L (15-37); BLOOD UREA NITROGEN 14 mg/dl (7-18); CALCIUM 8.8 mg/dl (8.5-10.1); CARBON DIOXIDE 26 mmol/L (21-32); GLUCOSE 92 mg/dl (70-99); LIPASE 159 U/L (73-393); POTASSIUM 4.3 mmol/L (3.5-5.1); SODIUM 131 mmol/L (136-145); TOTAL PROTEIN 6.6 gm/dl (6.4-8.2)
--- NOTE | 2017-12-06 14:28 | EMERGENCY ROOM VISIT NOTE ---
History Report prepared by Ruben: Jessica Louis Under the Supervision of: Dr. Kwabena Askew M.D. First contact with patient: 13:07 Stated Complaint: SHORTNESS OF BREATH/ CHEST PAIN History of Present Illness The patient is a 57-year-old female presents to the emergency department via EMS. The patient presents with altered mental status. She is difficult to arouse. Nursing staff states that she responds to sternal rub and gives different names when asked by different people. She is not participating in answering questions properly. She did state that she took a Valium 10 mg 1 tablet at 10 AM prior to arrival. She also states that she took Effexor, Prozac , and an unknown pain pill that was prescribed to her. She denies illicit substance use and only states that she does "drugs that the doctors give me". EMS does not report any history of trauma or fall. States she was sitting down and she had called 911. Source of History: patient Onset: today Position: chest Quality: other (chest pain) Timing: other (episode) Modifying Factors (Relieving): narcotics (10 mg Valium) Associated Symptoms: + SOB Review of Systems Review of systems limited due to patient's condition. Past Medical & Surgical Medical Problems: (1) Anxiety (2) Chest pain (3) Depression (4) Fractured toe (5) Malingering (6) Myoclonus (7) Myoclonus Family History Cancer Diabetes mellitus Gallbladder disease Heart disease Hypertension Kidney disease Kidney stones Social History Smoking Status: Former Smoker Alcohol Use: occasionally Marital Status: Housing Status: lives with significant other Occupation Status: unemployed Current/Historical Medications Scheduled Coenzyme Q10 (Ubidecarenone) (Co Q 10), 100 MG PO DAILY Diazepam (Valium), 10 MG PO DAILY Donepezil HCl (Aricept), 5 MG PO HS Fish Oil (Elgin-3), 2 CAP PO BID Fluoxetine (Prozac), 20 MG PO DAILY Levetiracetam (Keppra Xr), 500 MG PO HS Midodrine Hcl (Midodrine Hcl), 2.5 MG PO TID Multivitamins/Minerals (Mvi With Minerals), 1 TAB PO DAILY Sodium Bicarbonate (Sodium Bicarbonate), 650 MG PO BID Allergies Coded Allergies: Codeine (Verified Allergy, Unknown, "makes me sick", 12/06/17) Physical Exam Vital Signs Date Time Temp Pulse Resp B/P (MAP) Pulse Ox O2 Delivery O2 Flow Rate FiO2 12/06/17 19:39 68 16 124/73 95 12/06/17 18:33 50 15 140/85 100 Room Air 12/06/17 18:03 46 14 100 12/06/17 18:02 118/78 12/06/17 17:33 54 18 100 12/06/17 17:31 122/66 12/06/17 17:03 56 21 12/06/17 17:02 136/76 12/06/17 16:33 53 16 100 12/06/17 16:29 52 17 135/82 100 Room Air 12/06/17 16:28 135/82 12/06/17 15:53 53 14 12/06/17 15:38 52 16 100 12/06/17 15:31 134/79 12/06/17 15:23 51 14 99 12/06/17 15:08 53 13 100 12/06/17 15:01 123/78 12/06/17 14:53 54 15 100 12/06/17 14:38 54 14 99 12/06/17 14:33 54 11 99 Room Air 12/06/17 14:31 119/79 12/06/17 14:29 122/78 12/06/17 14:03 57 12 99 Room Air 12/06/17 13:58 56 17 99 Room Air 12/06/17 13:48 36.4 62 20 140/77 100 Room Air 12/06/17 13:28 61 16 12/06/17 13:11 56 12/06/17 13:09 140/77 Physical Exam Physical Exam GENERAL: In distress. HENT: Exam performed. Head: Normocephalic and atraumatic. EYES: Conjunctivae and EOM are normal. Pupils 2 mm and reactive. NECK: No JVD. No C-spine tenderness. CV: Normal rate, regular rhythm, normal heart sounds and intact distal pulses. There is no peripheral edema. Palpable radial pulses bue. PULM/CHEST: Diminished breath sounds bilaterally. ABD: Pain on palpation of the left lower quadrant and suprapubic area. NEURO: GCS eye subscore is 3. GCS verbal subscore is 4. GCS motor subscore is 6. Medical Decision & Procedures ER Provider Diagnostic Interpretation: Radiology results as stated below per my review and radiologist interpretation: CT OF THE HEAD WITHOUT CONTRAST CLINICAL HISTORY: Altered mental status. Possible fall. COMPARISON STUDY: No previous studies for comparison. TECHNIQUE: Helical axial images of the head were obtained without IV contrast. Automated exposure control was utilized for the study. A dose lowering technique was utilized adhering to the principles of ALARA. FINDINGS: No acute intracranial hemorrhage, midline shift or mass effect is present. Ventricular system is normal. Basilar cisterns are patent. There are no extra-axial collections. There are no findings to suggest acute dural sinus thrombosis or acute territorial infarct. There is no calvarial fracture. Visualized portions of the sinuses and mastoid air cells are clear. IMPRESSION: No acute intracranial findings. Electronically signed by: Nate Martines M.D. 12/06/2017 4:27 PM Dictated Date/Time: 12/06/2017 4:25 PM CHEST ONE VIEW PORTABLE HISTORY: 57 years-old Female od acute shortness of breath COMPARISON: Chest radiograph 11/27/2017 TECHNIQUE: Portable AP view of the chest FINDINGS: Mild right hemidiaphragmatic elevation. The cardiomediastinal and hilar silhouettes are within normal limits. There is no pneumothorax, pleural effusion, focal airspace consolidation or overt pulmonary edema. The bones of the chest appear grossly intact. IMPRESSION: No acute process. The above report was generated using voice recognition software. It may contain grammatical, syntax or spelling errors. Electronically signed by: Edgar Lisa M.D. 12/06/2017 1:41 PM Dictated Date/Time: 12/06/2017 1:[address] OF THE CERVICAL SPINE WITHOUT CONTRAST CLINICAL HISTORY: Overdose. Possible fall. COMPARISON STUDY: No previous studies for comparison. TECHNIQUE: Helical axial images of the cervical spine were obtained without IV contrast. Sagittal and coronal reconstructions were viewed. A dose lowering technique was utilized adhering to the principles of ALARA. FINDINGS: Craniocervical junction is intact. Reversal the normal cervical lordosis is noted. There is no acute cervical spine fracture. Facet joints are intact. There is moderate multilevel facet arthrosis and mild to moderate disc space narrowing with osteophytosis at C5-C6. IMPRESSION: No acute cervical spine fracture or subluxation. Electronically signed by: Nate Martines M.D. 12/06/2017 4:31 PM Dictated Date/Time: 12/06/2017 4:[address] OF THE ABDOMEN AND PELVIS WITH CONTRAST CLINICAL HISTORY: Possible overdose. Left lower quadrant pain. COMPARISON STUDY: None. TECHNIQUE: Following IV administration of 94 mL of Optiray-320, axial images of the abdomen and pelvis were obtained from the lung bases to the proximal femurs. Images were reviewed in the axial, sagittal, and coronal planes. IV contrast was administered without complication. A dose lowering technique was utilized adhering to the principles of ALARA. CT DOSE: 258.81 mGy.cm FINDINGS: No hemoperitoneum or pneumoperitoneum is present. There is no evidence for traumatic injury to the liver, spleen, adrenal glands, kidneys or pancreas. Multiple subcentimeter renal lesions are too small to characterize. There is no biliary or pancreatic ductal dilatation. A moderate amount stool is noted within the colon. No bowel wall thickening is noted. There are surgical clips within the right lower quadrant. There is no free fluid. No acute lumbar spine or pelvic fractures identified. There is no lymphadenopathy. IMPRESSION: 1. No acute traumatic findings within the abdomen or pelvis. 2. Moderate amount of stool within the colon. Electronically signed by: Nate Martines M.D. 12/06/2017 4:40 PM Dictated Date/Time: 12/06/2017 4:31 PM Laboratory Results 12/06/17 13:30 Red Blood Count 3.95, Mean Corpuscular Volume 89.1, Mean Corpuscular Hemoglobin 31.1, Mean Corpuscular Hemoglobin Concent 34.9, Mean Platelet Volume 8.6, Neutrophils (%) (Auto) 51.9, Lymphocytes (%) (Auto) 30.9, Monocytes (%) (Auto) 13.6, Eosinophils (%) (Auto) 2.8, Basophils (%) (Auto) 0.6, Neutrophils # (Auto ) 2.74, Lymphocytes # (Auto) 1.63, Monocytes # (Auto) 0.72, Eosinophils # (Auto ) 0.15, Basophils # (Auto) 0.03 12/06/17 13:30 Test 12/06/17 13:13 12/06/17 13:30 12/06/17 13:39 12/06/17 13:50 Bedside Glucose 103 mg/dl (70-90) White Blood Count 5.28 K/uL (4.8-10.8) Red Blood Count 3.95 M/uL (4.2-5.4) Hemoglobin 12.3 g/dL (12.0-16.0) Hematocrit 35.2 % (37-47) Mean Corpuscular Volume 89.1 fL (80-100) Mean Corpuscular Hemoglobin 31.1 pg (25-34) Mean Corpuscular Hemoglobin Concent 34.9 g/dl (32-36) Platelet Count 219 K/uL (130-400) Mean Platelet Volume 8.6 fL (7.4-10.4) Neutrophils (%) (Auto) 51.9 % Lymphocytes (%) (Auto) 30.9 % Monocytes (%) (Auto) 13.6 % Eosinophils (%) (Auto) 2.8 % Basophils (%) (Auto) 0.6 % Neutrophils # (Auto) 2.74 K/uL (1.4-6.5) Lymphocytes # (Auto) 1.63 K/uL (1.2-3.4) Monocytes # (Auto) 0.72 K/uL (0.11-0.59) Eosinophils # (Auto) 0.15 K/uL (0-0.5) Basophils # (Auto) 0.03 K/uL (0-0.2) RDW Standard Deviation 42.2 fL (36.4-46.3) RDW Coefficient of Variation 12.9 % (11.5-14.5) Immature Granulocyte % (Auto) 0.2 % Immature Granulocyte # (Auto) 0.01 K/uL (0.00-0.02) Estimated GFR () 72.4 Estimated GFR (Non- 62.5 BUN/Creatinine Ratio 14.0 (10-20) Calcium Level 8.8 mg/dl (8.5-10.1) Total Bilirubin 0.2 mg/dl (0.2-1) Direct Bilirubin < 0.1 mg/dl (0-0.2) Aspartate Amino Transf (AST/SGOT) 15 U/L (15-37) Alanine Aminotransferase (ALT/SGPT) 20 U/L (12-78) Alkaline Phosphatase 76 U/L (45-117) Total Creatine Kinase 94 U/L (26-192) Troponin I < 0.015 ng/ml (0-0.045) Total Protein 6.6 gm/dl (6.4-8.2) Albumin 3.5 gm/dl (3.4-5.0) Lipase 159 U/L (73-393) Salicylates Level < 1.7 mg/dl (2.8-20) Acetaminophen Level < 2 ug/ml (10-30) Bedside Hemoglobin 13.3 g/dl (12.0-16.0) Bedside Hematocrit 39 % (37-47) Bedside Sodium 130 mEq/L (135-144) Bedside Potassium 4.8 mEq/L (3.3-5.0) Bedside Chloride 93 mEq/L (101-112) Bedside Total CO2 29 mEq/l (24-31) Anion Gap 14.0 mmol/L (16-25) Bedside Blood Urea Nitrogen 19 mg/dl (7-18) Bedside Creatinine 1.1 mg/dl (0.6-1.3) Bedside Glucose (other) 98 mg/dl (70-99) Bedside Ionized Calcium (Ryan) 1.11 mmol/l (1.12-1.32) Ammonia 16.9 umol/L (11-32) Ethyl Alcohol mg/dL < 3.0 mg/dl (0-3) Test 12/06/17 14:00 12/06/17 14:14 Urine Color YELLOW Urine Appearance CLEAR (CLEAR) Urine pH 7.5 (4.5-7.5) Urine Specific Ringold 1.005 (1.000-1.030) Urine Protein NEG (NEG) Urine Glucose (UA) NEG (NEG) Urine Ketones NEG (NEG) Urine Occult Blood NEG (NEG) Urine Nitrite NEG (NEG) Urine Bilirubin NEG (NEG) Urine Urobilinogen NEG (NEG) Urine Leukocyte Esterase NEG (NEG) Urine Test NEG (NEG) Urine Opiates Screen NEG (NEG) Urine Methadone, Qualitative NEG (NEG) Urine Barbiturates NEG (NEG) Urine Phencyclidine (PCP) Level NEG (NEG) Ur Amphetamine/Methamphetamine NEG (NEG) MDMA (Ecstasy) Screen NEG (NEG) Urine Benzodiazepines Screen POS (NEG) Urine Cocaine Metabolite NEG (NEG) Urine Marijuana (THC) NEG (NEG) Prothrombin Time 10.2 SECONDS (9.0-12.0) Prothromb Time International Ratio 1.0 (0.9-1.1) Activated Partial Thromboplast Time 26.1 SECONDS (21.0-31.0) Partial Thromboplastin Ratio 1.0 Laboratory results reviewed by me Medications Administered Medications (Trade) Dose Ordered Sig/Kaur Route Start Time Stop Time Status Last Admin Dose Admin Naloxone HCl (Narcan Inj) 0.4 mg NOW STAT IV 12/06/17 13:13 12/06/17 13:17 DC 12/06/17 13:13 0.4 MG Naloxone HCl (Narcan Inj) 0.4 mg NOW STAT IV 12/06/17 14:21 12/06/17 14:22 DC 12/06/17 14:27 0.4 MG ECG Per My Interpretation Indication: chest pain Rate (beats per minute): 64 Rhythm: sinus rhythm Findings: other ([place], QRS, and QTC interval withing normal limits. No ST segment elevation or depression. ) ED Course 1307: The patient was evaluated in room B12. A complete history and physical exam was performed. Per nursing staff, the patient keeps giving different names to different people. Nursing staff states that she was here last week and was seen by previous providers, however these records were unable to be obtained since we are unsure what her name truly is. There is strong consideration for polysubstance overdose as the patient stated that she took "pills that doctors gave her." She does state that she took an unknown pain medication as well as Valium. Blood sugar was stable.Narcan Inj 0.4 mg IV and the patient became more awake after Narcan. She states she thinks Effexor is causing all all of her problems. She states she takes Keppra, Effexor, Prozac, an unknown pain medication, as well as Valium. She states she took Valium earlier today to "calm herself down". Patient denies any chance of being . She denies any illicit substance use. She will not answer if she recently drank alcohol. 1330: Patient more awake. Asking nursing staff phone. 1430: Nursing staff states that the patient is becoming more lethargic again, slurring her words and falling asleep. Her oxygen saturations blood pressure stable. Repeat dose of Narcan 0.4 mg IV push ordered. 1458: The patient is more alert and speaking coherently. She is awake, alert, and oriented X4 after the Narcan. 1830: The patient's vital signs are stable after 2 doses of Narcan. She is alert and doesn't remember what happened. She denies suicidal or homicidal ideations. She denies an overdose attempt. She denies hallucinations. Her images are normal with the exception of her lab showing positive benzodiazepines. 1901: The patient was screened and evaluated by psych case management and was deemed stable for discharge. Medical Decision 1307: The patient was evaluated in room B12. A complete history and physical exam was performed. Per nursing staff, the patient keeps giving different names to different people. Nursing staff states that she was here last week and was seen by previous providers, however these records were unable to be obtained since we are unsure what her name truly is. There is strong consideration for polysubstance overdose as the patient stated that she took "pills that doctors gave her." She does state that she took an unknown pain medication as well as Valium. Blood sugar was stable.Narcan Inj 0.4 mg IV and the patient became more awake after Narcan. She states she thinks Effexor is causing all all of her problems. She states she takes Keppra, Effexor, Prozac, an unknown pain medication, as well as Valium. She states she took Valium earlier today to "calm herself down". Patient denies any chance of being . She denies any illicit substance use. She will not answer if she recently drank alcohol. 1330: Patient more awake. Asking nursing staff phone. 1430: Nursing staff states that the patient is becoming more lethargic again, slurring her words and falling asleep. Her oxygen saturations blood pressure stable. Repeat dose of Narcan 0.4 mg IV push ordered. 1458: The patient is more alert and speaking coherently. She is awake, alert, and oriented X4 after the Narcan. 1830: The patient's vital signs are stable after 2 doses of Narcan. She is alert and doesn't remember what happened. She denies suicidal or homicidal ideations. She denies an overdose attempt. She denies hallucinations. Her images are normal with the exception of her lab showing positive benzodiazepines. 1901: The patient was screened and evaluated by psych case management and was deemed stable for discharge. Medication Reconcilliation Current Medication List: was personally reviewed by me Blood Pressure Screening Patient's blood pressure: Normal blood pressure Impression Primary Impression: Polysubstance abuse Critical Care I have personally spent greater than 55 minutes of critical care time in the direct management of this patient. This includes bedside care, interpretation of diagnostic studies, and testing, discussion with consultants, patient, and family members, and other required patient management activities. This 55 minutes is in excess of all separately billable procedures. Scribe Attestation The scribe's documentation has been prepared under my direction and personally reviewed by me in its entirety. I confirm that the note above accurately reflects all work, treatment, procedures, and medical decision making performed by me. The chart was completed utilizing [employer] Speech voice recognition software. Grammatical errors, random word insertions, pronoun errors, and incomplete sentences are an occasional consequence of this system due to software limitations, ambient noise, and hardware issues. Any formal questions or concerns about the content, text, or information contained within the body of this dictation should be directly addressed to the physician for clarification. Departure Information Dispostion Home / Self-Care Referrals Fernanda Morris D.O. (PCP) Forms HOME CARE DOCUMENTATION FORM, IMPORTANT VISIT INFORMATION, WORK / SCHOOL INSTRUCTIONS
[2017-12-06 14:33] LABS: PTT PATIENT 26.1 SECONDS (21.0-31.0)
[2017-12-06] MEDS ORDERED: DONE5TAB9 PO (14:33)
[2017-12-06] MEDS ORDERED: MIDO5TAB PO (14:33)
--- NOTE | 2017-12-06 16:29 | DIAGNOSTIC IMAGING REPORT ---
CT OF THE HEAD WITHOUT CONTRAST CLINICAL HISTORY: Altered mental status. Possible fall. COMPARISON STUDY: No previous studies for comparison. TECHNIQUE: Helical axial images of the head were obtained without IV contrast. Automated exposure control was utilized for the study. A dose lowering technique was utilized adhering to the principles of ALARA. FINDINGS: No acute intracranial hemorrhage, midline shift or mass effect is present. Ventricular system is normal. Basilar cisterns are patent. There are no extra-axial collections. There are no findings to suggest acute dural sinus thrombosis or acute territorial infarct. There is no calvarial fracture. Visualized portions of the sinuses and mastoid air cells are clear. IMPRESSION: No acute intracranial findings. Electronically signed by: Nate Martines M.D. 12/06/2017 4:27 PM Dictated Date/Time: 12/06/2017 4:25 PM
--- NOTE | 2017-12-06 16:32 | DIAGNOSTIC IMAGING REPORT ---
CT OF THE CERVICAL SPINE WITHOUT CONTRAST CLINICAL HISTORY: Overdose. Possible fall. COMPARISON STUDY: No previous studies for comparison. TECHNIQUE: Helical axial images of the cervical spine were obtained without IV contrast. Sagittal and coronal reconstructions were viewed. A dose lowering technique was utilized adhering to the principles of ALARA. FINDINGS: Craniocervical junction is intact. Reversal the normal cervical lordosis is noted. There is no acute cervical spine fracture. Facet joints are intact. There is moderate multilevel facet arthrosis and mild to moderate disc space narrowing with osteophytosis at C5-C6. IMPRESSION: No acute cervical spine fracture or subluxation. Electronically signed by: Nate Martines M.D. 12/06/2017 4:31 PM Dictated Date/Time: 12/06/2017 4:28 PM
--- NOTE | 2017-12-06 16:41 | DIAGNOSTIC IMAGING REPORT ---
CT OF THE ABDOMEN AND PELVIS WITH CONTRAST CLINICAL HISTORY: Possible overdose. Left lower quadrant pain. COMPARISON STUDY: None. TECHNIQUE: Following IV administration of 94 mL of Optiray-320, axial images of the abdomen and pelvis were obtained from the lung bases to the proximal femurs. Images were reviewed in the axial, sagittal, and coronal planes. IV contrast was administered without complication. A dose lowering technique was utilized adhering to the principles of ALARA. CT DOSE: 258.81 mGy.cm FINDINGS: No hemoperitoneum or pneumoperitoneum is present. There is no evidence for traumatic injury to the liver, spleen, adrenal glands, kidneys or pancreas. Multiple subcentimeter renal lesions are too small to characterize. There is no biliary or pancreatic ductal dilatation. A moderate amount stool is noted within the colon. No bowel wall thickening is noted. There are surgical clips within the right lower quadrant. There is no free fluid. No acute lumbar spine or pelvic fractures identified. There is no lymphadenopathy. IMPRESSION: 1. No acute traumatic findings within the abdomen or pelvis. 2. Moderate amount of stool within the colon. Electronically signed by: Nate Martines M.D. 12/06/2017 4:40 PM Dictated Date/Time: 12/06/2017 4:31 PM
[2017-12-06 19:39] VITALS: BP 124/73; PULSE 68; O2SAT 95
== END 2017-12-06 19:40 | disposition home or self-care (01) ==
LOC: EDBD 12:58 → C.EDB 13:06
DX: F19.10 Other psychoactive substance abuse, uncomplicated (principal); F41.9 Anxiety disorder, unspecified; F32.9 Major depressive disorder, single episode, unspecified; Z87.891 Personal history of nicotine dependence; Z88.5 Allergy status to narcotic agent

== ENCOUNTER 2017-12-13 13:39 | Emergency (ER) | payer OTHER ==
[~2017-12-13] VITALS: Ht 161.3 cm; Wt 56.9 kg
[~2017-12-13 13:39] MED LIST changes: -DONE10TA12 PO; +DONE5TAB9 PO
[2017-12-13 13:47] VITALS: TEMP 36.9; Ht 161.3 cm; Wt 56.9 kg
[2017-12-13] MEDS ORDERED: SODIUM CHLORIDE 0.9% 1000ML 1,000 ML IV STA (14:22)
[2017-12-13 14:54] LABS: BASO % 0.8 %; BASO ABS # 0.04 K/uL (0-0.2); EOS % 2.4 %; EOS ABS # 0.12 K/uL (0-0.5); HEMOGLOBIN 12.1 g/dL (12.0-16.0); LYMPH % 36.7 %; LYMPH ABS # 1.81 K/uL (1.2-3.4); MEAN CELL VOLUME 90.9 fL (80-100); MEAN CORPUSCULAR HEMOGLOBIN 31.4 pg (25-34); MEAN CORPUSCULAR HGB CONC 34.6 g/dl (32-36); MEAN PLATELET VOLUME 8.5 fL (7.4-10.4); MONO % 8.5 %; MONO ABS # 0.42 K/uL (0.11-0.59); NEUT % 51.6 %; NEUT ABS # 2.54 K/uL (1.4-6.5); PLATELET COUNT 257 K/uL (130-400); RED CELL DISTRIBUTION WIDTH CV 12.9 % (11.5-14.5); RED CELL DISTRIBUTION WIDTH SD 43.2 fL (36.4-46.3); WHITE BLOOD COUNT 4.93 K/uL (4.8-10.8)
[2017-12-13 15:14] LABS: ALBUMIN 3.8 gm/dl (3.4-5.0); CREATININE 0.92 mg/dl (0.60-1.20)
--- NOTE | 2017-12-13 15:43 | EMERGENCY ROOM VISIT NOTE ---
ED Visit Note First contact with patient: 14:02 CHIEF COMPLAINT: Feeling weak, muscle jerking, spider bite HISTORY OF PRESENTING ILLNESS: This is a 57-year-old female with past medical history significant for depression, anxiety, myoclonus, and polysubstance abuse who presents to the emergency department with complaint of feeling weak and having worsening of her myoclonus after a spider bite 2 days ago. Patient states she is convinced that it was a brown recluse spider, she did capture the spider, drowned and soap and water, then placed in her freezer for safe keeping and brought it with her today. Patient states that she was feeling fine until this morning when she called her PCP to schedule an appointment to come in to get a tetanus shot, she states when she told them that she was bitten by brown recluse spider that she was told to come to the emergency department to be evaluated. She states that she has been feeling very anxious and worried that she might have "poison in my system from the spider bite" and she does note that her anxiety seems to trigger her muscle jerking and myoclonus symptoms. She denies any headaches, vision changes, neck pain or stiffness, one-sided numbness or weakness, confusion, chest pain, shortness of breath, dizziness or syncope, nausea or vomiting, or unusual rash. She states that the spider bit her several times on the left hand. She denies any pain, but rates her anxiety as an 8/10. REVIEW OF SYSTEMS: A complete 10 point review of systems was reviewed with the patient with pertinent positives and negatives as per history of present illness. All else were negative. PAST MEDICAL HISTORY: Reviewed in chart, see problem list below. SOCIAL HISTORY: Lives at home. She denies tobacco use. ALLERGIES: Reviewed in chart, see below. PHYSICAL EXAM: CONSTITUTIONAL: Pleasant and cooperative. No acute distress. Well-hydrated, well appearing and well nourished. HEENT: Normocephalic, atraumatic. Pupils equal, round and reactive to light, EOMI. TMs normal. Pharynx normal. Moist mucous membranes. NECK: Supple, full active range of motion without discomfort. RESPIRATORY: Clear to auscultation bilaterally with no wheezing, crackles, rhonchi or stridor. Equal expansion bilaterally. CARDIOVASCULAR: Regular rate and rhythm with no murmurs, rubs or gallops. Normal peripheral perfusion. No edema. GASTROINTESTINAL: Soft, nontender, nondistended. No palpable masses or HSM. Bowel sounds present in all quadrants. MUSCULOSKELETAL: Full range of motion of all joints without discomfort. INTEGUMENTARY: There are no discernible lesions, bite rodriguez, or areas of erythema on the left hand or arm. No rash or other significant dermatologic conditions noted. NEUROLOGIC: Alert and oriented X 4 with normal affect. Cranial nerves II-XII grossly intact, no facial droop. No pronator drift. No focal neurologic deficits noted. 5/5 strength in all 4 extremities. Sensation intact to light touch in all 4 extremity's. Normal speech. Normal gait observed. Finger-nose- finger testing normal. Negative Romberg. ED COURSE AND MEDICAL DECISION MAKING: CC: Patient presenting with complaint of feeling weak, muscle jerking, spider bite DIFFERENTIAL DIAGNOSIS: Includes, but not limited to anxiety, dehydration, electrolyte abnormality, spider bite, among others. INTERPRETATION OF LABS: No leukocytosis, no anemia, normal platelets, no significant electrolyte abnormalities, normal renal function, normal liver enzymes. MEDICATION RECONCILIATION: I attest that I have personally reviewed the patient 's current medication list. INITIAL VITAL SIGNS REVIEW: I reviewed the patient's initial vital signs and interpret them as follows: T: Afebrile; BP: Normotensive; HR: Within normal limits; RR: Within normal limits; Pulse Ox: Within normal limits on room air. Blood pressure screening: The patient was found to have normal blood pressure on screening and does not require follow-up for repeat blood pressure check. SUMMARY: Patient was evaluated at bedside, history and physical exam performed. Patient is alert and oriented, in no acute distress, resting calmly in stretcher. There is no discernible spider bite or any other abnormality of the skin on the left hand or forearm. I did examine the spider that patient brought with her from home, there are no classic markings to indicate that this is a brown recluse spider. Neurologic exam is intact with no focal deficits. Patient does have occasional jerking motions of the legs, however this is controlled when she is asked to do focused movements. Orders were placed at bedside for labs, IV fluids for hydration as a precaution. Patient discussed with Dr. Prajapati, who agrees with my assessment and plan. Labs reviewed as above, unremarkable, no electrolyte abnormalities or other concerns. I did reassure the patient that she was not bitten by a brown recluse spider and she does not exhibit any adverse side effects from her alleged spider bites. Patient reassessed multiple times throughout ED stay, she has remained stable, she states she is feeling much better after receiving IV fluids. Patient was updated on all results and plan for discharge, she was encouraged to follow closely with her PCP. Patient was also given strict return precautions should her symptoms worsen, she verbalized understanding. Patient was discharged home in stable condition and ambulatory. Problem List Medical Problems: (1) Anxiety Status: Chronic (2) Chest pain Status: Resolved (3) Depression Status: Chronic (4) Fractured toe Status: Resolved (5) Malingering Status: Resolved (6) Myoclonus Status: Chronic Current/Historical Medications Scheduled Coenzyme Q10 (Ubidecarenone) (Co Q 10), 100 MG PO DAILY Diazepam (Valium), 10 MG PO DAILY Donepezil HCl (Aricept), 5 MG PO HS Fish Oil (Britt-3), 2 CAP PO BID Fluoxetine (Prozac), 20 MG PO DAILY Levetiracetam (Keppra Xr), 500 MG PO HS Midodrine Hcl (Midodrine Hcl), 2.5 MG PO TID Multivitamins/Minerals (Mvi With Minerals), 1 TAB PO DAILY Sodium Bicarbonate (Sodium Bicarbonate), 650 MG PO BID Allergies Coded Allergies: Codeine (Verified Allergy, Unknown, "makes me sick", 12/13/17) Venlafaxine (Unverified Allergy, Unknown, VERY ILL, 12/13/17) Vital Signs Date Time Temp Pulse Resp B/P (MAP) Pulse Ox O2 Delivery O2 Flow Rate FiO2 12/13/17 15:58 57 16 138/79 100 12/13/17 15:03 65 18 133/90 100 Room Air 12/13/17 13:47 36.9 82 18 99/63 97 Room Air Laboratory Results 12/13/17 14:45 Red Blood Count 3.85, Mean Corpuscular Volume 90.9, Mean Corpuscular Hemoglobin 31.4, Mean Corpuscular Hemoglobin Concent 34.6, Mean Platelet Volume 8.5, Neutrophils (%) (Auto) 51.6, Lymphocytes (%) (Auto) 36.7, Monocytes (%) (Auto) 8.5, Eosinophils (%) (Auto) 2.4, Basophils (%) (Auto) 0.8, Neutrophils # (Auto) 2.54, Lymphocytes # (Auto) 1.81, Monocytes # (Auto) 0.42, Eosinophils # (Auto) 0.12, Basophils # (Auto) 0.04 12/13/17 14:45 Test 12/13/17 14:45 White Blood Count 4.93 K/uL (4.8-10.8) Red Blood Count 3.85 M/uL (4.2-5.4) Hemoglobin 12.1 g/dL (12.0-16.0) Hematocrit 35.0 % (37-47) Mean Corpuscular Volume 90.9 fL (80-100) Mean Corpuscular Hemoglobin 31.4 pg (25-34) Mean Corpuscular Hemoglobin Concent 34.6 g/dl (32-36) Platelet Count 257 K/uL (130-400) Mean Platelet Volume 8.5 fL (7.4-10.4) Neutrophils (%) (Auto) 51.6 % Lymphocytes (%) (Auto) 36.7 % Monocytes (%) (Auto) 8.5 % Eosinophils (%) (Auto) 2.4 % Basophils (%) (Auto) 0.8 % Neutrophils # (Auto) 2.54 K/uL (1.4-6.5) Lymphocytes # (Auto) 1.81 K/uL (1.2-3.4) Monocytes # (Auto) 0.42 K/uL (0.11-0.59) Eosinophils # (Auto) 0.12 K/uL (0-0.5) Basophils # (Auto) 0.04 K/uL (0-0.2) RDW Standard Deviation 43.2 fL (36.4-46.3) RDW Coefficient of Variation 12.9 % (11.5-14.5) Immature Granulocyte % (Auto) 0.0 % Immature Granulocyte # (Auto) 0.00 K/uL (0.00-0.02) Anion Gap 8.0 mmol/L (3-11) Est Creatinine Clear Calc Drug Dose 57.0 ml/min Estimated GFR () 80.1 Estimated GFR (Non- 69.1 BUN/Creatinine Ratio 7.7 (10-20) Calcium Level 9.0 mg/dl (8.5-10.1) Magnesium Level 2.3 mg/dl (1.8-2.4) Total Bilirubin 0.2 mg/dl (0.2-1) Aspartate Amino Transf (AST/SGOT) 19 U/L (15-37) Alanine Aminotransferase (ALT/SGPT) 30 U/L (12-78) Alkaline Phosphatase 67 U/L (45-117) Total Protein 7.0 gm/dl (6.4-8.2) Albumin 3.8 gm/dl (3.4-5.0) Globulin 3.2 gm/dl (2.5-4.0) Albumin/Globulin Ratio 1.2 (0.9-2) Medications Administered Medications (Trade) Dose Ordered Sig/Kaur Route Start Time Stop Time Status Last Admin Dose Admin Sodium Chloride 1,000 ml @ 999 mls/hr Q1H1M STAT IV 12/13/17 14:22 12/13/17 15:22 DC 12/13/17 14:22 999 MLS/HR Departure Information Impression Primary Impression: Anxiety Dispostion Home / Self-Care Condition GOOD Referrals Fernanda Morris D.O. (PCP) Patient Instructions ED Panic Attack, ED Stress React, [facility] Additional Instructions You have been evaluated and treated in the emergency department today for your weakness and muscle jerking, which is believed to be related to your anxiety. Laboratory results have ruled out any emergent causes for your symptoms which would warrant further testing or admission to the hospital at this time. There is no evidence of a brown recluse spider bite on your exam today. Drink plenty of fluids to stay well hydrated. Please follow-up with your Primary Care Provider in the next few days for any further concerns. Return to the emergency department for severe worsening weakness, severe dizziness or passing out, fevers greater than 101, or any other concerns. Work Instructions Return To Work: 1 day
[2017-12-13 15:58] VITALS: BP 138/79; PULSE 57; O2SAT 100
== END 2017-12-13 15:59 | disposition home or self-care (01) ==
LOC: C.EDB 13:40
DX: F41.9 Anxiety disorder, unspecified (principal); F32.9 Major depressive disorder, single episode, unspecified; G25.3 Myoclonus; F19.10 Other psychoactive substance abuse, uncomplicated; Z79.899 Other long term (current) drug therapy; Z88.5 Allergy status to narcotic agent; Z88.8 Allergy status to other drugs, medicaments and biological substances